=== PATIENT | female | born 2000 | race African-American/Black ===

== ENCOUNTER 2020-03-28 10:25 | Observation (INO) | payer MEDICARE, OTHER, SELFPAY ==
[~2020-03-28] VITALS: Ht 175.3 cm; Wt 72.7 kg
[2020-03-28] MEDS ORDERED: NS 1,000 ML IV ONE (11:00)
[2020-03-28] MEDS ORDERED: GI COCKTAIL 50ML BTL(HYOSCYAMINE/MAALOX/LIDOCAINE VISCOUS)(1:3:1) PO ONE (11:00)
[2020-03-28] MEDS ORDERED: PANTOPRAZOLE 40MG VIAL (C9113 PER 1) IV ONE (11:00)
[2020-03-28] MEDS ORDERED: ONDANSETRON 4MG/2ML VIAL IV ONE ×2 (11:00→12:30)
[2020-03-28 11:16] LABS: BASO # 0.1 10^3/uL (0.0-0.2); BASO % 0.3 % (0.0-1.0); EOS # 0.2 10^3/uL (0.0-0.5); EOS % 1.1 % (0.0-3.0); HEMATOCRIT 41.9 % (36.0-47.0); HEMOGLOBIN 13.6 g/dl (12.0-15.5); LYMPH # 2.8 10^3/uL (1.5-5.0); LYMPH % 18.7 % (24.0-44.0); MEAN CORPUSCULAR HEMOGLOBIN 29.9 pg (27.0-33.0); MEAN CORPUSCULAR HGB CONC 32.5 g/dl (32.0-36.5); MEAN CORPUSCULAR VOLUME 92.1 fl (80.0-96.0); MONO # 0.7 10^3/uL (0.0-0.8); MONO % 4.8 % (0.0-5.0); NEUTROPHILS # 11.1 10^3/uL (1.5-8.5); NEUTROPHILS % 74.7 % (36.0-66.0); PLATELET COUNT, AUTOMATED 266 10^3/uL (150-450); RED BLOOD COUNT 4.55 10^6/uL (4.00-5.40); WHITE BLOOD COUNT 14.9 10^3/uL (4.0-10.0)
[2020-03-28 11:46] LABS: ALBUMIN 4.1 GM/DL (3.2-5.2); ALT/SGPT 17 U/L (12-78); BILIRUBIN,DIRECT 0.2 MG/DL (0.0-0.2); BILIRUBIN,TOTAL 0.5 MG/DL (0.2-1.0); BLOOD UREA NITROGEN 11 MG/DL (7-18); CARBON DIOXIDE LEVEL 25 MEQ/L (21-32); CHLORIDE LEVEL 110 MEQ/L (98-107); CREATININE FOR GFR 0.76 MG/DL (0.55-1.30); GLUCOSE, FASTING 88 MG/DL (70-100); LIPASE 118 U/L (73-393); POTASSIUM SERUM 3.6 MEQ/L (3.5-5.1); SODIUM LEVEL 140 MEQ/L (136-145); TOTAL PROTEIN 7.5 GM/DL (6.4-8.2)
[2020-03-28 11:54] LABS: HCG, SERUM QUALITATIVE NEGATIVE (NEGATIVE)
[2020-03-28] MEDS: GASTROGRAFIN SOLUTION 30ML PO SCH ×2 (12:47→13:30)
[2020-03-28] MEDS ORDERED: PROMETHAZINE INJ 25 MG/ML VIAL (J2550) IV ONE (13:15)
[2020-03-28] MEDS ORDERED: NS 1,000 ML IV SCH (13:16)
[2020-03-28] MEDS ORDERED: ISOVUE-370 76% 100ML VIAL As Ordered ONE (13:56)
[2020-03-28] MEDS ORDERED: ACETAMINOPHEN TAB 650MG DOSE (2X325MG) PO PRN (17:30)
[2020-03-28] MEDS ORDERED: METOCLOPRAMIDE INJ 10MG/2ML VIAL (J2765 PER 1) IV PRN (17:45)
--- NOTE | 2020-03-28 17:46 | HPEPDOC ---
[facility] Medical History & Physical Date of Admission March 28, 2020 Date of Service: March 28, 2020 Attending Physician: CELSA MICHEL MD History and Physical CHIEF COMPLAINT: nausea/vomiting HISTORY OF PRESENT ILLNESS: Tej Linton is a 19 YO F with history of daily marijuana use who presents with intractable nausea and vomiting. She states that she woke up this morning and started vomiting immediately. She was not able to keep anything down and has vomited numerous times. Last night she ate buffalo chicken dip made by a friend and she reports no one else who ate this dip is currently sick. She also had 1 episode of diarrhea this morning. Otherwise she has no complaints. She states that this has happened to her once before that prompted ED visit in a different state and her workup was negative. The ED she was given 2 doses of IV Zofran, one dose of promethazine with no relief of her nausea. She was also given a GI cocktail and told to drink the oral contrast for CT, but refused as she stated it made her nauseous. PAST MEDICAL HISTORY: Marijuana use (daily) PAST SURGICAL HISTORY: Hernia repair Back surgery SOCIAL HISTORY: Smokes marijuana daily Reports moderate EtOH use. Drank yesterday evening Denies other drug use FAMILY HISTORY: noncontributory ALLERGIES: Please see below. REVIEW OF SYSTEMS: CONSTITUTIONAL: Denies weight loss, weight gain, fevers, chills, or night sweats EYES: Denies visual changes, double vision, blurry vision, floaters, or feeling like a curtain pulled down. ENT: Denies runny nose, epistaxis, sinus pain, tinnitus, sore throat, or odynophasia CARDIOVASCULAR: Denies chest pain, shortness of breath, paroxysmal nocturnal dyspnea, orthopnea, edema, or palpitations. RESPIRATORY: Denies cough, sputum production, wheezes, hemoptysis, or shortness of breath GASTROINTESTINAL: Reports diffuse abdominal pain, nausea GENITOURINARY: Denies hematuria, polyuria, dysuria, hesitancy, or dribbling MSK: Denies joint swelling, decreased range of motion, crepitus, or new arthritis INTEGUMENTARY: Denies pruritus, rashes, or lesions NEUROLOGY: Denies any changes to sight/smell/hearing/taste, seizures, faint, headaches, paresthesias, anesthesias PSYCHIATRIC: Denies depression, anxiety, paranoia, anhedonia, or episodes of candi ENDOCRINE: Denies diarrhea, increased appetite, tremor, palpitations, constipation, dry skin, polydipsia, polyuria, polyphagia HEMATOLOGIC: Denies any anemia, purpura, or petechiae LYMPHATIC: Denies any new lumps or bumps anywhere HOME MEDICATIONS: Please see below. PHYSICAL EXAMINATION: VITAL SIGNS: Please see below. GENERAL APPEARANCE: Laying in bed, actively wretching and throwing up clear sputum, appears stated age, no acute distress, calm, cooperative HEENT: EOMI, PERRLA, neck is supple with no thyromegaly or lymphadenopathy RESPIRATORY: Lungs are clear to auscultation bilaterally with no adventitious breath sounds appreciated CARDIOVASCULAR: no JVD, tachycardic, no murmurs/rubs/gallops, normal S1 and S2 ABDOMEN: +BS, soft, tender only to deep palpation in all 4 quadrants, no masses/organomegaly EXTREMITIES: no clubbing, cyanosis or edema noted NEUROLOGICAL: CN 2-12 intact, No obvious focal deficits PSYCHIATRIC: normal mood/affect Skin: No rashes or ulcers appreciated, warm and well-perfused LN: No significant cervical or inguinal lymphadenopathy LABORATORY DATA: See below. IMAGING: CT ABD/PEL: Read pending MICROBIOLOGY: Please see below. ASSESSMENT: This is a 19 YO F with history of heavy marijuana use who presents with nausea, vomiting and 1 episode of diarrhea concerning for cyclic vomiting syndrome. . PLAN: 1. Nausea, Vomiting, abdominal pain: Most likely 2/2 Cyclic vomiting syndrome. Less likely appenticitis or cholecystitis as pain is generalized and CT findings not concerning -Status post Zofran 2, Phenergan 1,+ GI cocktail from ED -Continue IV fluids for now -Zofran 4mg Q8H as needed. QTC is 418 -Topical Capsacin to stomach -2mg Haldol once ordered -NPO, can have clear liquids once tolerated DVT ppx: TEDS/SCDs DISPO: Discharge likely within 24h Vital Signs Vital Signs Date Time Temp Pulse Resp B/P (MAP) Pulse Ox O2 Delivery O2 Flow Rate FiO2 03/28/20 16:21 97.9 03/28/20 16:00 52 18 123/67 (85) 100 Room Air Laboratory Data Labs 24H Laboratory Tests 2 03/28/20 11:05: Immature Granulocyte % (Auto) 0.4, Neutrophils (%) (Auto) 74.7H, Lymphocytes (%) (Auto) 18.7L, Monocytes (%) (Auto) 4.8, Eosinophils (%) (Auto) 1.1, Basophils (%) (Auto) 0.3, Neutrophils # (Auto) 11.1H, Lymphocytes # (Auto) 2.8, Monocytes # (Auto) 0.7, Eosinophils # (Auto) 0.2, Basophils # (Auto) 0.1, Nucleated Red Blood Cells % (auto) 0.0, Anion Gap 5L, Calcium Level 9.0, Total Bilirubin 0.5, Direct Bilirubin 0.2, Aspartate Amino Transf (AST/SGOT) 15, Alanine Aminotransferase (ALT/SGPT) 17, Alkaline Phosphatase 77, Total Protein 7.5, Albumin 4.1, Albumin/Globulin Ratio 1.2, Lipase 118, Human Chorionic Gonadotropin, Qual NEGATIVE CBC/BMP Laboratory Tests 03/28/20 11:05 Home Medications No Active Prescriptions or Reported Meds Allergies Coded Allergies: Peanut (Verified Allergy, Unknown, throat itchy, 03/28/20) A-FIB/CHADSVASC A-FIB History Current/History of A-Fib/PAF?: No Current PO Anticoag Therapy: No GME ATTESTATION GME ATTESTATION My faculty preceptor for this patient encounter was physically present during the encounter and was fully available. All aspects of the patient interview, examination, medical decision making process, and medical care plan development were reviewed and approved by the faculty preceptor. The faculty preceptor is aware and concurs with the plan as stated in the body of this note and will attest to such by his/her cosignature. JOSE NIEVES MD March 28, 2020 17:46
[2020-03-28] MEDS ORDERED: HALOPERIDOL 5MG/ML VIAL (J1630 PER 1) IV ONE (18:00)
[2020-03-28] MEDS ORDERED: CAPSAICIN 0.025% CR 60 GM TOP ONE (18:00)
[2020-03-28] MEDS: POTASSIUM CHLORIDE 10 MEQ SR TABLET PO ONE ×2 (19:00→20:10)
[2020-03-28] MEDS: NS 1,000 ML IV SCH (19:00)
[2020-03-28 19:28] VITALS: BP 140/75
[2020-03-29] MEDS: POTASSIUM CHLORIDE 10 MEQ SR TABLET PO ONE (00:52)
[2020-03-29] MEDS: NS 1,000 ML IV SCH ×2 (05:34→13:30)
[2020-03-29 06:50] VITALS: BP 111/71
[2020-03-29 06:56] LABS: AMPHETAMINES LEVEL URINE NEGATIVE (NEGATIVE); BARBITURATES URINE NEGATIVE (NEGATIVE); BENZODIAZEPINES URINE NEGATIVE (NEGATIVE); CANNABINOIDS URINE POSITIVE (NEGATIVE); COCAINE METABOLITE URINE NEGATIVE (NEGATIVE); METHADONE URINE NEGATIVE (NEGATIVE); OPIATES URINE NEGATIVE (NEGATIVE); PHENCYCLIDINE URINE NEGATIVE (NEGATIVE)
[2020-03-29 06:59] LABS: HEMATOCRIT 35.5 % (36.0-47.0); HEMOGLOBIN 11.7 g/dl (12.0-15.5); MEAN CORPUSCULAR HEMOGLOBIN 30.4 pg (27.0-33.0); MEAN CORPUSCULAR VOLUME 92.2 fl (80.0-96.0); PLATELET COUNT, AUTOMATED 214 10^3/uL (150-450); RED BLOOD COUNT 3.85 10^6/uL (4.00-5.40); WHITE BLOOD COUNT 12.8 10^3/uL (4.0-10.0)
[2020-03-29 07:17] LABS: BLOOD UREA NITROGEN 9 MG/DL (7-18); CALCIUM LEVEL 8.3 MG/DL (8.5-10.1); CARBON DIOXIDE LEVEL 24 MEQ/L (21-32); CHLORIDE LEVEL 112 MEQ/L (98-107); CREATININE FOR GFR 0.64 MG/DL (0.55-1.30); GLUCOSE, FASTING 67 MG/DL (70-100); MAGNESIUM LEVEL 1.9 MG/DL (1.8-2.4); POTASSIUM SERUM 4.2 MEQ/L (3.5-5.1); SODIUM LEVEL 144 MEQ/L (136-145)
--- NOTE | 2020-03-29 07:55 | REP ---
CT ABDOMEN AND PELVIS WITH IV CONTRAST: TECHNIQUE: Axial contrast-enhanced images from the lung bases to the pubic symphysis using 100 mL Isovue-370 intravenous contrast material with multiplanar reformations. Visualized lung bases are clear. The liver, spleen, adrenals, pancreas, and kidneys are normal in appearance. There is no hydronephrosis. There is no abdominal aortic aneurysm. There is no adenopathy. There is no free air. There is no evidence of bowel obstruction. The appendix is normal. Urinary bladder appears unremarkable. No definite pelvic mass seen. There is mild free fluid in the pelvis. IMPRESSION: No acute appendicitis or other acute bowel abnormality. No free air or obstruction. Mild free fluid in the pelvis. Electronically Signed by Francisco Javier Santos MD 03/29/2020 09:59 A
--- NOTE | 2020-03-29 14:02 | DS.PDOC ---
Discharge Summary General Date of Admission March 28, 2020 at 18:00 Date of Discharge 03/29/20 Attending Physician: CELSA MICHEL MD Discharge Summary PROCEDURES PERFORMED DURING STAY: None. ADMITTING DIAGNOSES: 1. Intractable vomiting, possible gastroenteritis. DISCHARGE DIAGNOSES: 1. Intractable vomiting, possible gastroenteritis. COMPLICATIONS/CHIEF COMPLAINT: Intractable Vomiting. HISTORY OF PRESENT ILLNESS: 19-year-old female was admitted for intractable vomiting, possibly secondary to gastroenteritis, less likely cyclic vomiting syndrome secondary to marijuana use. Patient was observed overnight, now tolerating by mouth, and has not had any vomiting since admission. She is comfortable, back to her baseline, without any complaints in the morning. He is hemodynamically stable for discharge and outpatient follow-up. HOSPITAL COURSE: As above. DISCHARGE MEDICATIONS: Please see below. ALLERGIES: Please see below. PHYSICAL EXAMINATION: VITAL SIGNS: Please see below. GENERAL: No distress HEENT: Normocephalic, atraumatic, moist mucous membranes NECK: Supple CARDIOVASCULAR EXAMINATION: S1, S2, no murmurs RESPIRATORY EXAMINATION: Clear to auscultation, no wheezing ABDOMINAL EXAMINATION: Soft, nontender, nondistended, positive bowel sounds EXTREMITIES: Range of motion intact SKIN: No rash NEUROLOGICAL EXAMINATION: Alert and oriented 3, no focal deficits PSYCHIATRIC EXAMINATION: Calm and cooperative LABORATORY DATA: Please see below. IMAGING: CT was negative for acute pathology PROGNOSIS: Good ACTIVITY: As tolerated. DIET: Regular DISCHARGE PLAN: Follow with PCP in 1-2 weeks DISPOSITION: Home. DISCHARGE INSTRUCTIONS: 1. As above. DISCHARGE CONDITION: Stable. TIME SPENT ON DISCHARGE: Greater than 25 minutes. Vital Signs/I&Os Vital Signs Date Time Temp Pulse Resp B/P (MAP) Pulse Ox O2 Delivery O2 Flow Rate FiO2 03/29/20 06:50 98.2 62 20 111/71 (84) 97 Room Air I&O- Last 24 Hours up to 6 AM 03/29/20 05:59 Intake Total 1450 ml Output Total 450 ml Balance 1000 ml Laboratory Data Labs 24H Laboratory Tests 2 03/29/20 06:19: Urine Opiates Screen NEGATIVE, Urine Methadone Screen NEGATIVE, Urine Barbiturates Screen NEGATIVE, Urine Phencyclidine Screen NEGATIVE, Urine Amphetamines Screen NEGATIVE, Urine Benzodiazepines Screen NEGATIVE, Urine Cocaine Metabolite Screen NEGATIVE, Urine Cannabinoids Screen POSITIVEH 03/29/20 06:31: Nucleated Red Blood Cells % (auto) 0.0, Anion Gap 8, Calcium Level 8.3L, Magnesium Level 1.9 CBC/BMP Laboratory Tests 03/29/20 06:31 Discharge Medications No Active Prescriptions or Reported Meds Allergies Coded Allergies: Peanut (Verified Allergy, Unknown, throat itchy, 03/28/20) CELSA MICHEL MD March 29, 2020 14:02
--- NOTE | 2020-03-29 19:47 | ECGEPIP ---
[facility] - ED Test Date: 2020-03-28 Pat Name: NICK SNOW Department: Room: 01-02 Gender: Female International Tax Manager: rosas : 2000 Requested By: BRIT Rodriguez Order Number: [id number] Reading MD: Chantelle Perera Measurements Intervals [place] Rate: 63 P: 44 VA: 202 QRS: 70 QRSD: 91 T: 51 QT: 409 QTc: 422 Interpretive Statements SINUS RHYTHM NO PRIOR Electronically Signed on 03-29-2020 19:47:35 EDT by Chantelle Perera
== END 2020-03-29 14:48 | disposition home or self-care (01) ==
LOC: EDBD 10:25 → M ED 10:25 → M ED INP 18:00 → ENRESERV 18:19 → M MS5PR 19:05
PROVIDERS: ADMIT Internal Medicine; ATTEND Internal Medicine
DX: R11.2 Nausea with vomiting, unspecified (principal); K52.9 Noninfective gastroenteritis and colitis, unspecified; F12.10 Cannabis abuse, uncomplicated; Z91.010 Allergy to peanuts
CPT/HCPCS: 36415; 74177; 80048; 80076; 80307; 83690; 83735; 84703; 85025; 85027; 93005; 93041; 96361; 96374; 96375; 96376; 99285; C9113; J1630; J2405; J2765; Q9963; Q9967

== ENCOUNTER 2021-03-30 15:47 | Emergency (ER) | payer OTHER ==
[~2021-03-30] VITALS: Ht 175.3 cm; Wt 93.4 kg
[2021-03-30 16:00] VITALS: BP 130/70
== END 2021-03-30 19:00 | disposition left against medical advice (07) ==
LOC: M ED 15:47
DX: Z53.21 Procedure and treatment not carried out due to patient leaving prior to being seen by health care provider (principal)

== ENCOUNTER 2021-03-31 21:18 | Emergency (ER) | payer OTHER ==
[~2021-03-31] VITALS: Ht 175.3 cm; Wt 95.6 kg
[2021-03-31 21:19] VITALS: BP 122/67
[2021-03-31] MEDS ORDERED: KETOROLAC 30 MG/ML 1ML VIAL IV ONE (23:15)
[2021-03-31] MEDS ORDERED: NS 1,000 ML IV ONE (23:15)
[2021-03-31] MEDS ORDERED: ONDANSETRON 4MG/2ML VIAL IV ONE (23:15)
[2021-03-31 23:28] LABS: ALBUMIN 3.6 GM/DL (3.2-5.2); BILIRUBIN,DIRECT 0.1 MG/DL (0.0-0.2); BILIRUBIN,TOTAL 0.4 MG/DL (0.2-1.0); TOTAL PROTEIN 7.1 GM/DL (6.4-8.2)
[2021-03-31 23:39] LABS: BASO # 0.1 10^3/uL (0.0-0.2); BASO % 0.7 % (0.0-1.0); EOS # 0.2 10^3/uL (0.0-0.5); EOS % 2.2 % (0.0-3.0); HEMATOCRIT 39.1 % (36.0-47.0); HEMOGLOBIN 12.8 g/dl (12.0-15.5); LYMPH # 3.9 10^3/uL (1.5-5.0); LYMPH % 36.5 % (24.0-44.0); MEAN CORPUSCULAR HEMOGLOBIN 30.1 pg (27.0-33.0); MEAN CORPUSCULAR HGB CONC 32.7 g/dl (32.0-36.5); MONO # 0.7 10^3/uL (0.0-0.8); MONO % 6.5 % (2.0-8.0); NEUTROPHILS # 5.8 10^3/uL (1.5-8.5); NEUTROPHILS % 53.8 % (36.0-66.0); PLATELET COUNT, AUTOMATED 273 10^3/uL (150-450); RED BLOOD COUNT 4.25 10^6/uL (4.00-5.40); WHITE BLOOD COUNT 10.8 10^3/uL (4.0-10.0)
== END 2021-03-31 23:16 | disposition left against medical advice (07) ==
LOC: M ED 21:18
DX: R10.84 Generalized abdominal pain (principal); R11.0 Nausea; Z53.9 Procedure and treatment not carried out, unspecified reason; Z91.010 Allergy to peanuts

== ENCOUNTER 2021-06-19 14:20 | Emergency (ER) | payer OTHER ==
[~2021-06-19] VITALS: Ht 175.3 cm; Wt 102.1 kg
[2021-06-19 16:00] VITALS: BP 122/70
[2021-06-19] MEDS ORDERED: predniSONE 20 MG TAB PO ONE (16:05)
[2021-06-19] MEDS ORDERED: PRED10TA2 PO (16:07)
== END 2021-06-19 16:26 | disposition home or self-care (01) ==
LOC: M ED 14:20
DX: M54.12 Radiculopathy, cervical region (principal); F41.9 Anxiety disorder, unspecified; F32.9 Major depressive disorder, single episode, unspecified; Z91.010 Allergy to peanuts
CPT/HCPCS: 99283; J7512

== ENCOUNTER 2021-08-29 08:39 | Emergency (ER) | payer OTHER ==
[~2021-08-29] VITALS: Ht 175.3 cm; Wt 100.0 kg
[2021-08-29 08:39] VITALS: BP 122/59
[~2021-08-29 08:39] MED LIST: PRED10TA2 PO
--- OUTSIDE RECORDS SUMMARY | 2021-08-29 08:45 | CCD ---
Author Organization Unknown Address [address] [place] [address] Phone [phone] Care Team Providers Care Real Estate Professor Name Role Phone Hali Adams Unavailable Unavailable Allergies Code Code System Name Reaction Severity Status Onset NKDA Medications Name Status Start Date Stop Date meloxicam 15 mg tablet Take 1 tablet every day by oral route. Active Not available Problems None recorded. Procedures None recorded. Results Lab Results None recorded. Past Encounters 06/29/2021 Patient New to Provider; Paresthesia of Hand Hali Adams MD: [address] [place] [phone], Ph. Social History Tobacco Smoking Status Never Smoker Vaccine List None recorded. Plan of Care Reminders Provider Appointments None recorded. Lab None recorded. Referral None recorded. Procedures None recorded. Surgeries None recorded. Imaging None recorded. Vitals Weight Blood Pressure 223 lbs 123/76 mm[Hg]
--- OUTSIDE RECORDS SUMMARY | 2021-08-29 08:45 | CCD ---
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 gh: [address] [facility] Blood venous Normal Red Blood Cell Count 4.5 7 million/uL 3.80-5.10 million/uL Final [facility] gh: [address] [facility] Blood venous Normal Hemoglobin 13.8 g/dL 11.7-15. 5 g/dL Final [facility]: [address] [facility] Blood venous Normal Hematocrit 40.8 % 35.0-45.0 % Final [facility]: [address] [facility] Blood venous Normal Mcv 89.3 fL 80.0-100.0 fL Fi nal [facility]: [address] [facility] Blood venous Normal Mch 30.2 pg 27.0-33.0 pg Fin al [facility]: [address] [facility] Blood venous Normal Mchc 33.8 g/dL 32.0-36.0 g/dL [facility]: [address] [facility] Blood venous Normal Rdw 12.7 % 11.0-15.0 % Final [facility]: [address] Blood venous Normal Platelet Count 286 thous and/uL 140-400 thousand/uL Final [facility]: [address] [facility] Blood venous High Mpv 12.7 fL 7.5-12.5 fL Elvira l [facility]: [address] [facility] Lyme Disease Igg+igm, Serum, Reflex Western Blot Blood ve nous Normal Lyme Ab Screen <0.90 index Final [facility]: [address] [facility] CHUCKY (Antinuclear Antibodies) Screen, Serum Blood venous Normal anachoice(R) Screen negative negative Final [facility] [place]: [address] Past Encounters 07/21/2021 Adult Health Examination; Patient New to Provider; Immunization Advised; Body Mass Index 30+ - Obesity; Hyperlipidemia Screening; Venereal Disease Screening; Endocrine/metabolic Screening Elgin Allen MD: [address] [place] [phone], Ph. 07/01/2021 Reynold Esparza MD: [address] [place] [phone], Ph. 06/29/2021 Patient New to Provider; Paresthesia of Hand Elgin Allen MD: [address] [place] [phone], Ph. Social History Tobacco Smoking Status Never Smoker Vaccine List None recorded. Plan of Care Reminders Provider Appointments None recorded. Lab None recorded. Referral None recorded. Procedures None recorded. Surgeries None recorded. Imaging None recorded. Vitals 07/21/2021 11:20AM NEW PATIENT (11yrs - OLDER) Height Weight BMI Blood Pressure 69 in 230 lbs 34 kg/m2 112/75 mm[Hg] 06/29/2021 04:40PM ED FOLLOW-UP Weight Blood Pressure 223 lbs 123/76 mm[Hg]
--- OUTSIDE RECORDS SUMMARY | 2021-08-29 08:45 | CCD ---
Author Organization Unknown Address [address] [place] [address] Phone [phone] Care Team Providers Care Fluid Designer Name Role Phone ELGIN ALLEN MD 3 [phone] [facility] 129 [phone] Allergies Code Code System Name Reaction Severity Status Onset NKDA Medications Name Status Start Date Stop Date cholecalciferol (vitamin D3) 50 mcg (2,0 00 unit) tablet Take 1 tablet every day by oral route. 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 Vitamin D Deficiency Active 07/27/2021 Procedures Date Name Performed by Primary Lumbar Discectomy Information no t available Repair of Umbilical Hernia Information n ot available Results Lab Results Date Name Specimen Result Interpretation Description Value Range Status Address 08/23/2021 SARS CoV 2 RdRp Gene, QL Probe, Respiratory Spec imen Nasopharyngeal Sars-cov-2 PCR negative Main [facility] Medical: [address] [facility] Nasopharyngeal Normal Sars-cov-2 negative negative Final [facility] Medical: [address] [facility] Cbc Blood venous Normal White Blood Cell Count 1 0.8 thousand/uL 3.8-10.8 thousand/uL Final [facility] gh: [address] [facility] Blood venous Normal Red Blood Cell Count 4.5 7 million/uL 3.80-5.10 million/uL Final [facility] gh: [address] [facility] Blood venous Normal Hemoglobin 13.8 g/dL 11.7-15. 5 g/dL Final [facility]: [address] [facility] Blood venous Normal Hematocrit 40.8 % 35.0-45.0 % Final [facility]: [address] [facility] Blood venous Normal Mcv 89.3 fL 80.0-100.0 fL Fi nal [facility]: [address] [facility] Blood venous Normal Mch 30.2 pg 27.0-33.0 pg Fin al [facility]: [address] [facility] Blood venous Normal Mchc 33.8 g/dL 32.0-36.0 g/dL Final [facility]: [address] [facility] Blood venous Normal Rdw 12.7 % 11.0-15.0 % [facility]: [address] [facility] Blood venous Normal Platelet Count 286 thous and/uL 140-400 thousand/uL Final [facility]: [address] [facility] Blood venous High Mpv 12.7 fL 7.5-12.5 fL Elvira l [facility]: [address] [facility] Lyme Disease Igg+igm, Serum, Reflex Western Blot Blood ve nous Normal Lyme Ab Screen <0.90 index Final [facility]: [address] [facility] CHUCKY (Antinuclear Antibodies) Screen, Serum Blood venous Normal anachoice(R) Screen negative negative Final [facility] Diagn [facility]: [address] [facility] Lipid Panel, Serum Normal Cholesterol, Total 152 m g/dL <200 mg/dL Final [facility]: [address] [facility] Normal HDL Cholesterol 72 mg/dL > or = 50 m g/dL [facility]: [address] [facility] High Triglycerides 214 mg/dL <150 mg/dL F inal [facility]: [address] [facility] Normal LDL-cholesterol 52 mg/dL (calc) Final [facility]: [address] [facility] Normal Chol/hdlc Ratio 2.1 (calc) <5.0 (elvis c) [facility]: [address] [facility] Normal Non HDL Cholesterol 80 mg/dL (calc) <130 mg/dL (calc) Final [facility]: [address] [facility] Hepatitis C Antibody and HIV 1/2, Screen and Diagnosti c Panel W/reflexes Hepatitis C Antibody nonreactive nonreactive Final [facility]: [address] [facility] Index 0.01 ratio <1.00 ratio Final [facility]: [address] [facility] HIV Ag/Ab, 4TH Gen non-reactive non- reactive Final [facility]: [address] [facility] Sti Increased Risk Panel Chla mydia Trachomatis RNA, Tma, Urogenital not detected not detected Final [facility]: [address] [facility] Neisseria Gonorrhoeae RNA, Tma, Urogenital not detected not detected Final [facility]: [address] [facility] sureab(R) Trichomonas Vaginal is RNA, Ql, Tma not detected not detected Final [facility]: [address] [facility] sureab(R), Mycoplasma Genital ium,realtime PCR not detected not detected Final [facility]: [address] [facility] Assay Details see note [facility]: [address] [facility] CMP, Serum or Plasma Normal Glucose 65 mg/dL 65-99 mg/dL [facility]: [address] [facility] Normal Urea Nitrogen (BUN) 9 mg/dL 7-25 mg/ dL [facility]: [address] [facility] Normal Creatinine 0.76 mg/dL 0.50-1.10 mg/d L [facility]: [address] [facility] Normal eGFR Non-afr. Irish 112 mL/ min/1.73m2 > or = 60 mL/min/1.73m2 [facility]: [address] [facility] Normal eGFR 130 mL/m in/1.73m2 > or = 60 mL/min/1.73m2 [facility]: [address] [facility] BUN/creatinine Ratio not applicable (calc) 6-22 (calc) [facility]: [address] [facility] Normal Sodium 141 mmol/L 135-146 mmol/L Fin al [facility]: [address] [facility] Normal Potassium 4.4 mmol/L 3.5-5.3 mmol/L [facility]: [address] [facility] Normal Chloride 107 mmol/L 98-110 mmol/L Fi nal [facility]: [address] [facility] Normal Carbon Dioxide 26 mmol/L 20-32 mmol/ L [facility]: [address] [facility] Normal Calcium 9.9 mg/dL 8.6-10.2 mg/dL Fin al [facility]: [address] [facility] Normal Protein, Total 7.2 g/dL 6.1-8.1 g/dL [facility]: [address] [facility] Normal Albumin 4.5 g/dL 3.6-5.1 g/dL Final [facility]: [address] [facility] Normal Globulin 2.7 g/dL (calc) 1.9-3.7 g/d L (calc) Final [facility]: [address] [facility] Normal Albumin/globulin Ratio 1.7 (calc) 1. 0-2.5 (calc) [facility]: [address] [facility] Normal Bilirubin, Total 0.4 mg/dL 0.2-1.2 m g/dL Final [facility]: [address] [facility] Normal Alkaline Phosphatase 87 U/L 31-125 U /L Final [facility]: [address] [facility] Normal Ast 20 U/L 10-30 U/L Final [facility] [address] [facility] Normal Alt 13 U/L 6-29 U/L Final [facility] [address] [facility] Tsh Normal Tsh 1.10 mIU/L [facility]: [address] [facility] Vitamin D, 25-Hydroxy, Total, Serum Low Vitamin D,25-Oh,total,ia 12 NG/mL 30-100 NG/mL Final [facility]: [address] [facility] HbA1C (Hemoglobin a1C), Blood Normal Hemoglobi n a1C 5.0 % of total HGB <5.7 % of total HGB [facility] [address] [facility] RPR (Rapid Plasma Reagin), Serum Normal RPR (DX) W/refl Titer and Confirmatory Testing non-reactive non-reactive Final [facility] Diag nostics [facility]: [address] [facility] Past Encounters 08/23/2021 Exposure to SARS-CoV-2 Reynold Esparza MD: [address] [place] [phone], Ph. 07/21/2021 Adult Health Examination; Patient New to Provider; Immunization Advised; Body Mass Index 30+ - Obesity; Hyperlipidemia Screening; Venereal Disease Screening; Endocrine/metabolic Screening Elgin Allen MD: [address] [place] [phone], Ph. 07/01/2021 Reynold Esparza MD: [address] [place] [phone], Ph. 06/29/2021 Patient New to Provider; Paresthesia of Hand Elgin Allen MD: [address] [place] [phone], Ph. Social History Tobacco Smoking Status Never [...]
--- OUTSIDE RECORDS SUMMARY | 2021-08-29 08:45 | CCD ---
Author Organization Unknown Address [address] [place] [address] Phone [phone] Care Team Providers Care Tenoner Operator Name Role Phone Hali Adams Unavailable Unavailable Allergies Code Code System Name Reaction Severity Status Onset NKDA Medications Name Status Start Date Stop Date meloxicam 15 mg tablet Take 1 tablet every day by oral route. Active Not available Problems None recorded. Procedures None recorded. Results Lab Results None recorded. Past Encounters 07/01/2021 Reynold Esparza MD: [address] [place] [phone], Ph. 06/29/2021 Patient New to Provider; Paresthesia of Hand Hali Adams MD: [address] [place] [phone], Ph. Social History Tobacco Smoking Status Never Smoker Vaccine List None recorded. Plan of Care Reminders Provider Appointments None recorded. Lab None recorded. Referral None recorded. Procedures None recorded. Surgeries None recorded. Imaging None recorded. Vitals Weight Blood Pressure 223 lbs 123/76 mm[Hg]
--- OUTSIDE RECORDS SUMMARY | 2021-08-29 08:45 | CCD ---
Author Author [facility] Organization [facility] Address Unknown Phone Unavailable Care Team Providers Care Poly Operator Name Role Phone Estefany Esparza MD Unavailable Unavailable Estefany Esparza MD Unavailable Unavailable Estefany Esparza MD Unavailable Unavailable Estefany Esparza MD Unavailable Unavailable Estefany Esparza MD Unavailable Unavailable Estefany Esparza MD Unavailable Unavailable Estefany Esparza MD Unavailable Unavailable Estefany Esparza MD Unavailable Unavailable Estefany Esparza MD Unavailable Unavailable Estefany Esparza MD Unavailable Unavailable Estefany Esparza MD Unavailable Unavailable Estefany Esparza MD Unavailable Unavailable Estefany Esparza MD Unavailable Unavailable Estefany Esparza MD Unavailable Unavailable Estefany Esparza MD Unavailable Unavailable Estefany Esparza MD Unavailable Unavailable Estefany Esparza MD Unavailable Unavailable Estefany Esparza MD Unavailable Unavailable Estefany Esparza MD Unavailable Unavailable Estefany Esparza MD Unavailable Unavailable Estefany Esparza MD Unavailable Unavailable Estefany Esparza MD Unavailable Unavailable Estefany Esparza MD Unavailable Unavailable Estefany Esparza MD Unavailable Unavailable Estefany Esparza MD Unavailable Unavailable Estefany Esparza MD Unavailable Unavailable Estefany Epsarza MD Unavailable Unavailable Estefany Esparza MD Unavailable Unavailable Estefany Esparza MD Unavailable Unavailable Estefany Esparza MD Unavailable Unavailable Estefany Esparza MD Unavailable Unavailable Estefany Espazra MD Unavailable Unavailable Estefany Esparza MD Unavailable Unavailable Estefany Esparza MD Unavailable Unavailable Estefany Esparza MD Unavailable Unavailable Estefany Esparza MD Unavailable Unavailable Estefany Esparza MD Unavailable Unavailable Estefany Esparza MD Unavailable Unavailable Estefany Esparza MD Unavailable Unavailable Estefany Esparza MD Unavailable Unavailable EsparzaEstefany MD Unavailable Unavailable EsparzaEstefany MD Unavailable Unavailable EsparzaEstefany MD Unavailable Unavailable EsparzaEstefany MD Unavailable Unavailable EsparzaEstefany MD Unavailable Unavailable Estefany Esparza MD Unavailable Unavailable Estefany Esparza MD Unavailable Unavailable Estefany Esparza MD Unavailable Unavailable Estefany Esparza MD Unavailable Unavailable Estefany Esparza MD Unavailable Unavailable Estefany Esparza MD Unavailable Unavailable EsparzaEstefany MD Unavailable Unavailable Esparza, Estefany Flaherty MD Unavailable Unavailable EsparzaEstefany MD Unavailable Unavailable EsparzaEstefany MD Unavailable Unavailable EsparzaEstefany MD Unavailable Unavailable Estefany Esparza MD Unavailable Unavailable Estefany Esparza MD Unavailable Unavailable EsparzaEstefany MD Unavailable Unavailable EsparzaEstefany MD Unavailable Unavailable EsparzaEstefany MD Unavailable Unavailable EsparzaEstefany MD Unavailable Unavailable Estefany Epsarza MD Unavailable Unavailable Estefany Esparza MD Unavailable Unavailable Estefany Esparza MD Unavailable Unavailable Estefany Esparza MD Unavailable Unavailable Estefany Esparza MD Unavailable Unavailable Estefany Esparza MD Unavailable Unavailable Estefany Esparza MD Unavailable Unavailable Estefany Esparza MD Unavailable Unavailable Estefany Esparza MD Unavailable Unavailable Estefany Esparza MD Unavailable Unavailable Estefany Esparza MD Unavailable Unavailable Estefany Esparza MD Unavailable Unavailable Estefany Esparza MD Unavailable Unavailable Estefany Esparza MD Unavailable Unavailable Estefany Esparza MD Unavailable Unavailable Estefany Esparza MD Unavailable Unavailable Estefany Esparza MD Unavailable Unavailable Estefany Esparza MD Unavailable Unavailable Estefany Esparza MD Unavailable Unavailable Estefany Esparza MD Unavailable Unavailable Estefany Esparza MD Unavailable Unavailable Estefany Esparza MD Unavailable Unavailable Estefany Esparza MD Unavailable Unavailable Estefany Esparza MD Unavailable Unavailable Estefany Esparza MD Unavailable Unavailable Estefany Esparza MD Unavailable Unavailable Estefayn Esparza MD Unavailable Unavailable Estefany Esparza MD Unavailable Unavailable Estefany Esparza MD Unavailable Unavailable Estefany Esparza MD Unavailable Unavailable Estefany Esparza MD Unavailable Unavailable Angie, Velia Unavailable Unavailable Angie, Velia Unavailable Unavailable Angie, Velia Unavailable Unavailable Angie, Velia Unavailable Unavailable Angie, Velia Unavailable Unavailable Angie, Velia Unavailable Unavailable Angie, Velia Unavailable Unavailable Angie, Velia Unavailable Unavailable Angie, Velia Unavailable Unavailable Angie, Velia Unavailable Unavailable Angie, Velia Unavailable Unavailable Angie, Velia Unavailable Unavailable Angie, Velia Unavailable Unavailable Angie, Velia Unavailable Unavailable Angie, Velia Unavailable Unavailable Angie, Velia Unavailable Unavailable Angie, Velia Unavailable Unavailable Angie, Velia Unavailable Unavailable Angie, Velia Unavailable Unavailable Angie, Velia Unavailable Unavailable Angie, Velia Unavailable Unavailable Angie, Velia Unavailable Unavailable Angie, Velia Unavailable Unavailable Angie, Velia Unavailable Unavailable Angie, Velia Unavailable Unavailable Angie, Velia Unavailable Unavailable Re-disclosure Warning The records that you are about to access may contain information from federally-assisted alcohol or drug abuse programs. If such information is present, then the following federally mandated warning applies: This information has been disclosed to you from records protected by federal confidentiality rules (42 CFR part 2). The federal rules prohibit you from making any further disclosure of this information unless further disclosure is expressly permitted by the written consent of the person to whom it pertains or as otherwise permitted by 42 CFR part 2. A general authorization for the release of medical or other information is NOT sufficient for this purpose. The Federal rules restrict any use of the information to criminally investigate or prosecute any alcohol or drug abuse patient.The records that you are about to access may contain highly sensitive health information, the redisclosure of which is protected by Article 27-F of the [facility] Public Health law. If you continue you may have access to information: Regarding HIV / AIDS; Provided by facilities licensed or operated by the [facility] Office of Mental Health; or Provided by the [facility] Office for People With Developmental Disabilities. If such information is present, then the following [facility] mandated warning applies: This information has been disclosed to you from confidential records which are protected by state law. State law prohibits you from making any further disclosure of this information without the specific written consent of the person to whom it pertains, or as otherwise permitted by law. Any unauthorized further disclosure in violation of state law may result in a fine or half-way sentence or both. A general authorization for the release of medical or other information is NOT sufficient authorization for further disc losure. Encounters Encounter Providers Location Date Indications Data Source(s ) Reynold Esparza MD: [address] [place] [phone], Ph. Attender: Reynold Esparza MD [facility] Medical 08/23/2021 12:00:00 AM EDT JAYASHREE ([facility]) Hali Adams MD: [address], [place] [facility] [place] [address], Ph. Attender: Hali Adams [facility] Medical 07/21/2021 12:00:00 AM EDT JAYASHREE ([facility]) Hali Adams MD: [address], [place] [facility] [place] [address], Ph. Attender: Hali Adams [facility] Medical 07/21/2021 12:00:00 AM EDT JAYASHREE ([facility]) Reynold Esparza MD: [address] [place] [address], Ph. Attender: Reynold Esparza MD [facility] Medical 07/01/2021 12:00:00 AM EDT JAYASHREE ([facility]) Reynold Esparza MD: [address] [place] [address], Ph. Attender: Reynold Esparza MD [facility] Medical 07/01/2021 12:00:00 AM EDT JAYASHREE ([facility]) Reynold Esparza MD: [address] [place] [address], Ph. Attender: Reynold Esparza MD [facility] Medical 07/01/2021 12:00:00 AM EDT JAYASHREE ([facility]) Hali Adams MD: [address], [place] [facility] [place] [address], Ph. Attender: Hali Adams [facility] Medical 06/29/2021 12:00:00 AM EDT JAYASHREE ([facility]) Hali Adams MD: [address], [place] [facility] [place] [address], Ph. Attender: Hali Adams [facility] Medical 06/29/2021 12:00:00 AM EDT MAN[facility] ([facility]) Hali Adams MD: [address] [facility] [place] [address], Ph. Attender: Hali Adams [facility] Medical 06/29/2021 12:00:00 AM EDT MANLI[facility] ([facility]) Hali Adams MD: [address] [place] [address], Ph. Attender: Hali Adams [place] 06/29/2021 12:00:00 AM EDT MANLIUS ([facility]) Medications Medication Brand Name Start Date Product Form Dose Route Admi nistrative Instructions Pharmacy Instructions Status Indications Reaction Description Data Source(s) meloxicam 15 MG Oral Tablet meloxicam 15 mg tablet meloxicam 15 mg ta blet completed meloxicam 15 MG Oral Tablet MANLIUS ([facility]) meloxicam 15 MG Oral Tablet meloxicam 15 mg tablet meloxicam 15 mg ta blet completed meloxicam 15 MG Oral Tablet [facility] ([facility]) Insurance Providers Payer name Policy type / Coverage type Policy ID Covered democrat ID Covered democrat's relationship to mcconnell Policy [place] Plan Information EDSON [id number] SP [id number] EDSON [id number] SP [id number] [employer] EP[employer] [id number] SP [id number] 1 O UNAVAILABLE UNAVAILA BLE [employer] EP[employer] O [id number] S [id number] MEDICARE COMPLETE [id number] SP [id number] SELF PAY ONLY [id number] SP [id number] Problems, Conditions, and Diagnoses Code Display Name Description Problem Type Effective Dates Data Source(s) 83173566 Vitamin D deficiency Vitamin D Deficiency Problem 07/27/2021 12:00:00 AM EDT MANLIUS ([facility]) [id number] 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 Problem 07/21/2021 12:00:00 AM EDT MANLIUS ([facility]) [id number] Intervertebral disc prolapse Intervertebral Disc Prola pse Problem 07/21/2021 12:00:00 AM EDT [facility] ([facility]) [id number] 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 Problem 07/21/2021 12:00:00 AM EDT MANLIUS ([facility]) [id number] Intervertebral disc prolapse Intervertebral Disc Prola pse Problem 07/21/2021 12:00:00 AM EDT MANLIUS ([facility]) [id number] Paresthesia of hand Paresthesia of Hand Problem 0 07/20/2021 12:00:00 AM EDT MANLIUS ([facility]) [id number] Paresthesia of hand Paresthesia of Hand Problem 0 07/20/2021 12:00:00 AM EDT MANLIUS ([facility]) Surgeries/Procedures No Information Results ID Date Data Source [id number] 08/23/2021 02:20:00 PM EDT MANLIUS ([facility]) Name Value Range Interpretation Code Description Data Jordana rce(s) Supporting Document(s) sars-cov-2 PCR negative Sars-cov-2 PCR MANLIUS ([facility]) sars-cov-2 negative negative Sars-cov-2 MANLIUS ([facility]) ID Date Data Source [id number] 08/23/2021 02:05:00 PM EDT [facility] Name Value Range Interpretation Code Description Data Jordana rce(s) Supporting Document(s) SARS coronavirus 2 RdRp gene [Presence] in Respiratory specimen by HERMELINDO with probe detection Not detected [facility] This lab was ordered by [facility] and reported by [facility]. ID Date Data Source [id number] 07/27/2021 12:00:00 AM EDT [facility] ([facility]) Name Value Range Interpretation Code Description Data Jordana rce(s) Supporting Document(s) Reagin Ab [Presence] in Serum by RPR non-reactive non-reactive RPR (DX) W/refl Titer and Confirmatory Testing MAN[facility]US ([facility]) ID Date Data Source [id number] 07/27/2021 12:00:00 AM EDT [facility]) Name Value Range Interpretation Code Description Data Jordana rce(s) Supporting Document(s) Hemoglobin A1c/Hemoglobin.total in Blood 5.0 %_of_total_HGB <5.7 Hemoglobin a1C [facility]) ID Date Data Source [id number] 07/27/2021 12:00:00 AM EDT [facility]) Name Value Range Interpretation Code Description Data Jordana rce(s) Supporting Document(s) Calcidiol [Mass/volume] in Serum or Plasma 12 NG/mL 30-100 Below low normal Vitamin D,25-Oh,total,ia [facility]) ID Date Data Source [id number] 07/27/2021 12:00:00 AM EDT [facility]) Name Value Range Interpretation Code Description Data Jordana rce(s) Supporting Document(s) Thyrotropin [Units/volume] in Serum or Plasma 1.10 mIU/L Tsh [facility]) ID Date Data Source [id number] 07/27/2021 12:00:00 AM EDT [facility]) Name Value Range Interpretation Code Description Data Jordana rce(s) Supporting Document(s) Glucose [Mass/volume] in Serum or Plasma 65 mg/dL 65-99 Glucose MANLIUS ([facility]) Urea nitrogen [Mass/volume] in Serum or Plasma 9 mg/dL 7-25 Urea Nitrogen (BUN) [facility] Glomerular filtration rate/1.73 sq M.pre dicted among non-blacks [Volume Rate/Area] in Serum, Plasma or Blood by Creatinine-based formula (CKD-EPI) 112 mL/min/1.73m2 > or = 60 eGFR Non-afr. Nepalese JAYASHREE ([facility]) Creatinine [Mass/volume] in Serum or Plasma 0.76 mg/dL 0.50-1.10 Creatinine JAYASHREE ([facility]) Glomerular filtration rate/1.73 sq M.pre dicted among blacks [Volume Rate/Area] in Serum, Plasma or Blood by Creatinine-based formula (CKD-EPI) 130 mL/min/1.73m2 > or = 60 eGFR JAYASHREE (No [facility]) Urea nitrogen/Creatinine [Mass Ratio] in Serum or Plasma not applic able 6-22 BUN/creatinine Ratio JAYASHREE ([facility]) Sodium [Moles/volume] in Serum or Plasma 141 mmol/L 135-146 Sodium JAYASHREE ([facility]) Potassium [Moles/volume] in Serum or Plasma 4.4 mmol/L 3.5-5.3 Potassium JAYASHREE ([facility]) Chloride [Moles/volume] in Serum or Plasma 107 mmol/L 98-110 Chloride JAYASHREE ([facility]) Calcium [Mass/volume] in Serum or Plasma 9.9 mg/dL 8.6-10.2 Calcium JAYASHREE ([facility]) Carbon dioxide, total [Moles/volume] in Serum or Plasma 26 mmol/L 20-32 Carbon Dioxide JAYASHREE ([facility]) Protein [Mass/volume] in Serum or Plasma 7.2 g/dL 6.1-8.1 Protein, Total JAYASHREE ([facility]) Albumin [Mass/volume] in Serum or Plasma 4.5 g/dL 3.6-5.1 Albumin JAYASHREE ([facility]) Globulin [Mass/volume] in Serum by calculation 2.7 g/dL_(calc) 1.9- 3.7 Globulin JAYASHREE ([facility]) Albumin/Globulin [Mass Ratio] in Serum or Plasma 1.7 (calc) 1.0-2 .5 Albumin/globulin Ratio JAYASHREE ([facility]) Alkaline phosphatase [Enzymatic activity/volume] in Serum or Plasma 87 U/L 31-125 Alkaline Phosphatase [facility]US ([facility]) Bilirubin.total [Mass/volume] in Serum or Plasma 0.4 mg/dL 0.2-1 .2 Bilirubin, Total JAYASHREE ([facility]) Aspartate aminotransferase [Enzymatic activity/volume] in Serum or Plasma 20 U/L 10-30 Ast MANLIUS ([facility]) Alanine aminotransferase [Enzymatic activity/volume] in Seru m or Plasma 13 U/L 6-29 Alt MANLIUS ([facility]) ID Date Data Source [id number] 07/27/2021 12:00:00 AM EDT [facility]) Name Value Range Interpretation Code Description Data Jordana rce(s) Supporting Document(s) Chlamydia trachomatis rRNA [Presence] in Unspecified specimen by Probe and target amplification method not detected not detected Chla mydia Trachomatis RNA, Tma, Urogenital MANLIUS ([facility]) Neisseria gonorrhoeae rRNA [Presence] in Unspecified specimen by Probe and target amplification method not detected not detected Neis seria Gonorrhoeae RNA, Tma, Urogenital MAN[facility]US ([facility]) Trichomonas vaginalis rRNA [Presence] in Unspecified specimen by Probe and target amplification method not detected not detected sure swab(R) Trichomonas Vaginalis RNA, Ql, Tma MAN[facility]US ([facility]) Mycoplasma genitalium DNA [Presence] in Unspecified specimen by Probe and target amplification method not detected not detected sureswab(R ), Mycoplasma Genitalium,realtime PCR [facility]US ([facility]) Service comment 05 see note Assay Details [facility] ([facility]) ID Date Data Source [id number] 07/27/2021 12:00:00 AM EDT [facility]) Name Value Range Interpretation Code Description Data Jordana rce(s) Supporting Document(s) Hepatitis C virus Ab [Presence] in Serum or Plasma by Immuno assay nonreactive nonreactive Hepatitis C Antibody [facility]US ([facility]) Hepatitis C virus Ab Signal/Cutoff in Serum or Plasma by Imm unoassay 0.01 ratio <1.00 Index JAYASHREE ([facility]) HIV 1+2 Ab+HIV1 p24 Ag [Presence] in Serum or Plasma b y Immunoassay non-reactive non-reactive HIV Ag/Ab, 4TH Gen [facility] ID Date Data Source [id number] 07/27/2021 12:00:00 AM EDT [facility] ([facility]) Name Value Range Interpretation Code Description Data Jordana rce(s) Supporting Document(s) Cholesterol in HDL [Mass/volume] in Serum or Plasma 72 mg/dL > or = 50 HDL Cholesterol JAYASHREE ([facility]) Cholesterol [Mass/volume] in Serum or Plasma 152 mg/dL <200 Cholesterol, Total JAYASHREE ([facility]) Cholesterol in LDL [Mass/volume] in Serum or Plasma by calculation 52 mg/dL_(calc) LDL-cholesterol JAYASHREE ([facility]) Triglyceride [Mass/volume] in Serum or Plasma 214 mg/dL <150 Above high normal Triglycerides JAYASHREE ([facility]) Cholesterol.total/Cholesterol in HDL [Mass Ratio] in Serum o r Plasma 2.1 (calc) <5.0 Chol/hdlc Ratio JAYASHREE ([facility]) Cholesterol non HDL [Mass/volume] in Serum or Plasma 80 mg/dL_(calc ) <130 Non HDL Cholesterol [facility]) ID Date Data Source [id number] 07/02/2021 12:00:00 AM EDT [facility]) Name Value Range Interpretation Code Description Data Jordana rce(s) Supporting Document(s) Nuclear Ab [Presence] in Serum negative negative anach oice(R) Screen [facility]) ID Date Data Source [id number] 07/02/2021 12:00:00 AM EDT [facility]) Name Value Range Interpretation Code Description Data Jordana rce(s) Supporting Document(s) Borrelia burgdorferi Ab [Units/volume] in Serum by Immunoassay <0.9 0 Lyme Ab Screen [facility] ID Date Data Source [id number] 07/02/2021 12:00:00 AM EDT [facility] ([facility]) Name Value Range Interpretation Code Description Data Jordana rce(s) Supporting Document(s) Erythrocytes [#/volume] in Blood by Automated count 4.57 million/uL 3.80-5.10 Red Blood Cell Count JAYASHREE ([facility]) Leukocytes [#/volume] in Blood by Automated count 10.8 thousand/uL 3.8-10.8 White Blood Cell Count JAY[facility]REE ([facility]) Erythrocyte mean corpuscular hemoglobin [Entitic mass] by Automated count 30.2 pg 27.0-33.0 Mch JAYASHREE ([facility]) Erythrocyte mean corpuscular volume [Entitic volume] by Auto mated count 89.3 fL 80.0-100.0 Mcv JAYASHREE ([facility]) Hemoglobin [Mass/volume] in Blood 13.8 g/dL 11.7-15.5 He moglobin JAYASHREE ([facility]) Hematocrit [Volume Fraction] of Blood by Automated count 40.8 % 35.0-45.0 Hematocrit JAYASHREE ([facility]) Erythrocyte distribution width [Ratio] by Automated count 12.7 % 11.0-15.0 Rdw JAYASHREE ([facility]) Platelets [#/volume] in Blood by Automated count 286 thousand/uL 14 0-400 Platelet Count JAYASHREE ([facility]) Erythrocyte mean corpuscular hemoglobin concentration [Mass/volume] by Automated count 33.8 g/dL 32.0-36.0 Mchc JAYASHREE ([facility]) Platelet mean volume [Entitic volume] in Blood by Subhash-Aditi 12. 7 fL 7.5-12.5 Above high normal Mpv MANLIUS ([facility]) ID Date Data Source [id number] 07/02/2021 12:00:00 AM EDT [facility] ([facility]) Name Value Range Interpretation Code Description Data Jordana rce(s) Supporting Document(s) Nuclear Ab [Presence] in Serum negative negative anach oice(R) Screen JAYASHREE ([facility]) ID Date Data Source [id number] 07/02/2021 12:00:00 AM EDT [facility] ([facility]) Name Value Range Interpretation Code Description Data Jordana rce(s) Supporting Document(s) Borrelia burgdorferi Ab [Units/volume] in Serum by Immunoassay <0.9 0 Lyme Ab Screen [facility] ([facility]) ID Date Data Source [id number] 07/02/2021 12:00:00 AM EDT [facility] ([facility]) Name Value Range Interpretation Code Description Data Jordana rce(s) Supporting Document(s) Leukocytes [#/volume] in Blood by Automated count 10.8 thousand/uL 3.8-10.8 White Blood Cell Count [facility]US ([facility]) Erythrocytes [#/volume] in Blood by Automated count 4.57 million/uL 3.80-5.10 Red Blood Cell Count JAYASHREE ([facility]) Hemoglobin [Mass/volume] in Blood 13.8 g/dL 11.7-15.5 He moglobin JAYASHREE ([facility]) Hematocrit [Volume Fraction] of Blood by Automated count 40.8 % 35.0-45.0 Hematocrit [facility]US ([facility]) Erythrocyte mean corpuscular volume [Entitic volume] by Auto mated count 89.3 fL 80.0-100.0 Mcv JAYASHREE ([facility]) Erythrocyte mean corpuscular hemoglobin [Entitic mass] by Automated count 30.2 pg 27.0-33.0 Mch JAYASHREE ([facility]) Erythrocyte mean corpuscular hemoglobin concentration [Mass/volume] by Automated count 33.8 g/dL 32.0-36.0 Mchc JAYASHREE ([facility]) Erythrocyte distribution width [Ratio] by Automated count 12.7 % 11.0-15.0 Rdw JAYASHREE ([facility]) Platelets [#/volume] in Blood by Automated count 286 thousand/uL 14 0-400 Platelet Count JAYASHREE ([facility]) Platelet mean volume [Entitic volume] in Blood by Pattie 12. 7 fL 7.5-12.5 Above high normal Mpv JAYASHREE ([facility]) Procedure Social History No Information Vital Signs ID Date Data Source [id number] Name Value Range Interpretation Code Description Data Source(s) Diastolic blood pressure 75 mm[Hg] 75 mm[Hg] JAYASHREE ([facility]) Body height 69 [in_i] 69 [in_i] JAYASHREE ([facility]) Body mass index (BMI) [Ratio] 34 kg/m2 34 kg/ m2 JAYASHREE ([facility]) Systolic blood pressure 112 mm[Hg] 112 mm[Hg] A [facility] ([facility]) Body weight 3680 [oz_av] 3680 [oz_av] JAYASHREE ([facility]) Diastolic blood pressure 75 mm[Hg] 75 mm[Hg] JAYASHREE ([facility]) Body height 69 [in_i] 69 [in_i] JAYASHREE ([facility]) Body mass index (BMI) [Ratio] 34 kg/m2 34 kg/ m2 JAYASHREE ([facility]) Systolic blood pressure 112 mm[Hg] 112 mm[Hg] A [facility] ([facility]) Body weight 3680 [oz_av] 3680 [oz_av] JAYASHREE ([facility]) Diastolic blood pressure 76 mm[Hg] 76 mm[Hg] JAYASHREE ([facility]) Systolic blood pressure 123 mm[Hg] 123 mm[Hg] A [facility] ([facility]) Body weight 3568 [oz_av] 3568 [oz_av] JAYASHREE ([facility]) Diastolic blood pressure 76 mm[Hg] 76 mm[Hg] JAYASHREE ([facility]) Systolic blood pressure 123 mm[Hg] 123 mm[Hg] A [facility] ([facility]) Body weight 3568 [oz_av] 3568 [oz_av] JAYASHREE ([facility]) Diastolic blood pressure 76 mm[Hg] 76 mm[Hg] JAYASHREE ([facility]) Systolic blood pressure 123 mm[Hg] 123 mm[Hg] [facility]) Body weight 3568 [oz_av] 3568 [oz_av] JAYASHREE ([facility]) Diastolic blood pressure 76 mm[Hg] 76 mm[Hg] JAYASHREE ([facility]) Systolic blood pressure 123 mm[Hg] 123 mm[Hg] Nisha MCGOWAN ([facility]) Body weight 3568 [oz_av] 3568 [oz_av] JAYASHREE ([facility]) Patient Treatment Plan of Care Planned Activity Planned Date Details Description Data Source (s) meloxicam 15 MG Oral Tablet JAYASHREE ([facility]) meloxicam 15 MG Oral Tablet JAYASHREE ([facility])
--- OUTSIDE RECORDS SUMMARY | 2021-08-29 09:07 | CCD ---
Author Author [facility] Organization [facility] Address Unknown Phone Unavailable Care Team Providers Care Deputy Sheriff Lieutenant Name Role Phone Estefany Esparza MD Unavailable Unavailable Estefany Esparza MD Unavailable Unavailable Estefany Esparza MD Unavailable Unavailable Estefnay Esparza MD Unavailable Unavailable Estefany Esparza MD [...] Unavailable Unavailable Estefany Esparza MD Unavailable Unavailable Etsefany Esparza MD Unavailable Unavailable Estefany Esparza MD [...] is protected by Article 27-F of the [facility] Public Health law. If you continue you may have access to information: Regarding HIV / AIDS; Provided by facilities licensed or operated by the [facility] Office of Mental Health; or Provided by the [facility] Office for People With Developmental Disabilities. If such information is present, then the following [facility] mandated warning applies: This information has [...] law may result in a fine or fci sentence or both. A general authorization for the release of medical or other information is NOT sufficient authorization for further disc losure. Encounters Encounter Providers Location Date Indications Data Source(s ) Reynold Esparza MD: [address] [place] [phone], Ph. Attender: Reynold Esparza MD [facility] Medical 08/23/2021 12:00:00 AM EDT JAYASHREE ([facility]) Hali Adams MD: [address], [place] [address], Ph. Attender: Hali Adams [facility] Medical 07/21/2021 12:00:00 AM EDT JAYASHREE ([facility]) Hali Adams MD: [address], [place] [address], Ph. Attender: Hali Adams [facility] Medical 07/21/2021 12:00:00 AM EDT JAYASHREE ([facility]) Reynold Esparza MD: [address] [place] [address], Ph. Attender: Reynold Esparza MD [facility] Medical 07/01/2021 12:00:00 AM EDT JAYASHREE ([facility]) Reynold Esparza MD: [address] [place] [address], Ph. Attender: Reynold Esparza MD [facility] Medical 07/01/2021 12:00:00 AM EDT JAYASHREE ([facility]) Reynold Esparza MD: [address] [place] [address], Ph. Attender: Reynold Esparza MD [facility] Medical 07/01/2021 12:00:00 AM EDT JAYASHREE ([facility]) Hali Adams MD: [address], [place] [address], Ph. Attender: Hali Adams [facility] Medical 06/29/2021 12:00:00 AM EDT JAYASHREE ([facility]) Hali Adams MD: [address], [place] [address], Ph. Attender: Hali Aadms [facility] Medical 06/29/2021 12:00:00 AM EDT ARVADA ([facility]) Hali Adams MD[facility] [address] [facility] [place] [address], Ph. Attender: Hali Adams [facility] Medical 06/29/2021 12:00:00 AM EDT ARVADA ([facility]) Hali Adams MD: [address] [place] [address], Ph. Attender: Hali Adams [facility] [place]/29/2021 12:00:00 AM EDT ARVADA ([facility]) Medications Medication Brand Name Start Date Product Form Dose Route Admi nistrative Instructions Pharmacy Instructions Status Indications Reaction Description Data Source(s) meloxicam 15 MG Oral Tablet meloxicam 15 mg tablet meloxicam 15 mg ta blet completed meloxicam 15 MG Oral Tablet ARVADA ([facility]) meloxicam 15 MG Oral Tablet meloxicam 15 mg tablet meloxicam 15 mg ta blet completed meloxicam 15 MG Oral Tablet ARVADA ([facility]) Insurance Providers Payer name Policy type / Coverage type Policy ID Covered republican ID Covered republican's relationship to mcconnell Policy [place]on[place] Plan Information EDSON [id number] SP [id number] EDSON [id number] SP [id number] NCO EPALS [id number] SP [id number] 1 O UNAVAILABLE UNAVAILA BLE NCO EPALS O [id number] S [id number] MEDICARE COMPLETE [id number] SP [id number] SELF PAY ONLY [id number] SP [id number] Problems, Conditions, and Diagnoses Code Display Name Description Problem Type Effective Dates Data Source(s) 31444797 Vitamin D deficiency Vitamin D Deficiency Problem 07/27/2021 12:00:00 AM EDT ARVADA ([facility] er) [id number] 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 Problem 07/21/2021 12:00:00 AM EDT ARVADA ([facility]) [id number] Intervertebral disc prolapse Intervertebral Disc Prola pse Problem 07/21/2021 12:00:00 AM EDT ARVADA ([facility] er) [id number] 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 Problem 07/21/2021 12:00:00 AM EDT ARVADA ([facility]) [id number] Intervertebral disc prolapse Intervertebral Disc Prola pse Problem 07/21/2021 12:00:00 AM EDT ARVADA ([facility]) [id number] Paresthesia of hand Paresthesia of Hand Problem 0 07/20/2021 12:00:00 AM EDT ARVADA ([facility] er) [id number] Paresthesia of hand Paresthesia of Hand Problem 0 07/20/2021 12:00:00 AM EDT ARVADA ([facility]) Surgeries/Procedures No Information Results ID Date Data Source [id number] 08/23/2021 02:20:00 PM EDT ARVADA ([facility]) Name Value Range Interpretation Code Description Data Jordana rce(s) Supporting Document(s) sars-cov-2 PCR negative Sars-cov-2 PCR ARVADA ([facility]) sars-cov-2 negative negative Sars-cov-2 ARVADA ([facility]) ID Date Data Source [id number] 08/23/2021 02:05:00 PM EDT [facility] Name Value Range Interpretation Code Description Data Jordana rce(s) Supporting Document(s) SARS coronavirus 2 RdRp gene [Presence] in Respiratory specimen by HERMELINDO with probe detection Not detected [facility] This lab was ordered by [facility] and reported by [facility]. ID Date Data Source [id number] 07/27/2021 12:00:00 AM EDT ARVADA ([facility]) Name Value Range Interpretation Code Description Data Jordana rce(s) Supporting Document(s) Reagin Ab [Presence] in Serum by RPR non-reactive non-reactive RPR (DX) W/refl Titer and Confirmatory Testing ARVADA ([facility]) ID Date Data Source [id number] 07/27/2021 12:00:00 AM EDT [facility]) Name Value Range Interpretation Code Description Data Jordana rce(s) Supporting Document(s) Hemoglobin A1c/Hemoglobin.total in Blood 5.0 %_of_total_HGB <5.7 Hemoglobin a1C [facility]) ID Date Data Source [id number] 07/27/2021 12:00:00 AM EDT [facility]) Name Value Range Interpretation Code Description Data Jordana rce(s) Supporting Document(s) Calcidiol [Mass/volume] in Serum or Plasma 12 NG/mL 30-100 Below low normal Vitamin D,25-Oh,total,ia [facility]) ID Date Data Source [id number] 07/27/2021 12:00:00 AM EDT [facility]) Name Value Range Interpretation Code Description Data Jordana rce(s) Supporting Document(s) Thyrotropin [Units/volume] in Serum or Plasma 1.10 mIU/L Tsh [facility]) ID Date Data Source [id number] 07/27/2021 12:00:00 AM EDT [facility]) Name Value Range Interpretation Code Description Data Jordana rce(s) Supporting Document(s) Glucose [Mass/volume] in Serum or Plasma 65 mg/dL 65-99 Glucose ARVADA ([facility]) Urea nitrogen [Mass/volume] in Serum or Plasma 9 mg/dL 7-25 Urea Nitrogen (BUN) [facility]) Glomerular filtration rate/1.73 sq M.pre dicted among non-blacks [Volume Rate/Area] in Serum, Plasma or Blood by Creatinine-based formula (CKD-EPI) 112 mL/min/1.73m2 > or = 60 eGFR Non-afr. [place] JAYASHREE ([facility]) Creatinine [Mass/volume] in Serum or Plasma 0.76 mg/dL 0.50-1.10 Creatinine JAYASHREE ([facility]) Glomerular filtration rate/1.73 sq M.pre dicted among blacks [Volume Rate/Area] in Serum, Plasma or Blood by Creatinine-based formula (CKD-EPI) 130 mL/min/1.73m2 > or = 60 eGFR JAYASHREE (No [facility]) Urea nitrogen/Creatinine [Mass Ratio] in Serum or Plasma not applic able 6-22 BUN/creatinine Ratio JAYASHREE ([facility]) Sodium [Moles/volume] in Serum or Plasma 141 mmol/L 135-146 Sodium JAYASHREE ([facility]) Potassium [Moles/volume] in Serum or Plasma 4.4 mmol/L 3.5-5.3 Potassium JAYASHREE ([facility]) Chloride [Moles/volume] in Serum or Plasma 107 mmol/L 98-110 Chloride JAYASHREE ([facility]) Calcium [Mass/volume] in Serum or Plasma 9.9 mg/dL 8.6-10.2 Calcium JAYASHREE ([facility]) Carbon dioxide, total [Moles/volume] in Serum or Plasma 26 mmol/L 20-32 Carbon Dioxide JAYASHREE ([facility]) Protein [Mass/volume] in Serum or Plasma 7.2 g/dL 6.1-8.1 Protein, Total JAYASHREE ([facility]) Albumin [Mass/volume] in Serum or Plasma 4.5 g/dL 3.6-5.1 Albumin JAYASHREE ([facility]) Globulin [Mass/volume] in Serum by calculation 2.7 g/dL_(calc) 1.9- 3.7 Globulin JAYASHREE ([facility]) Albumin/Globulin [Mass Ratio] in Serum or Plasma 1.7 (calc) 1.0-2 .5 Albumin/globulin Ratio JAYASHREE ([facility]) Alkaline phosphatase [Enzymatic activity/volume] in Serum or Plasma 87 U/L 31-125 Alkaline Phosphatase ARVADA ([facility]) Bilirubin.total [Mass/volume] in Serum or Plasma 0.4 mg/dL 0.2-1 .2 Bilirubin, Total JAYASHREE ([facility]) Aspartate aminotransferase [Enzymatic activity/volume] in Serum or Plasma 20 U/L 10-30 Ast ARVADA ([facility]) Alanine aminotransferase [Enzymatic activity/volume] in Seru m or Plasma 13 U/L 6-29 Alt ARVADA ([facility]) ID Date Data Source [id number] 07/27/2021 12:00:00 AM EDT [facility]) Name Value Range Interpretation Code Description Data Jordana rce(s) Supporting Document(s) Chlamydia trachomatis rRNA [Presence] in Unspecified specimen by Probe and target amplification method not detected not detected Chla mydia Trachomatis RNA, Tma, Urogenital ARVADA ([facility]) Neisseria gonorrhoeae rRNA [Presence] in Unspecified specimen by Probe and target amplification method not detected not detected Neis seria Gonorrhoeae RNA, Tma, Urogenital ARVADA ([facility]) Trichomonas vaginalis rRNA [Presence] in Unspecified specimen by Probe and target amplification method not detected not detected sure swab(R) Trichomonas Vaginalis RNA, Ql, Tma ARVADA ([facility]) Mycoplasma genitalium DNA [Presence] in Unspecified specimen by Probe and target amplification method not detected not detected sureswab(R ), Mycoplasma Genitalium,realtime PCR ARVADA ([facility]) Service comment 05 see note Assay Details [facility] ([facility]) ID Date Data Source [id number] 07/27/2021 12:00:00 AM EDT [facility]) Name Value Range Interpretation Code Description Data Jordana rce(s) Supporting Document(s) Hepatitis C virus Ab [Presence] in Serum or Plasma by Immuno assay nonreactive nonreactive Hepatitis C Antibody ARVADA ([facility]) Hepatitis C virus Ab Signal/Cutoff in Serum or Plasma by Imm unoassay 0.01 ratio <1.00 Index JAYASHREE ([facility]) HIV 1+2 Ab+HIV1 p24 Ag [Presence] in Serum or Plasma b y Immunoassay non-reactive non-reactive HIV Ag/Ab, 4TH Gen [facility]) ID Date Data Source [id number] 07/27/2021 12:00:00 AM EDT ARVADA ([facility]) Name Value Range Interpretation Code Description Data Jordana rce(s) Supporting Document(s) Cholesterol in HDL [Mass/volume] in Serum or Plasma 72 mg/dL > or = 50 HDL Cholesterol JAYASHREE ([facility]) Cholesterol [Mass/volume] in Serum or Plasma 152 mg/dL <200 Cholesterol, Total JAYASHREE ([facility]) Cholesterol in LDL [Mass/volume] in Serum or Plasma by calculation 52 mg/dL_(calc) LDL-cholesterol JAYASHREE ([facility]) Triglyceride [Mass/volume] in Serum or Plasma 214 mg/dL <150 Above high normal Triglycerides JAYASHREE ([facility]) Cholesterol.total/Cholesterol in HDL [Mass Ratio] in Serum o r Plasma 2.1 (calc) <5.0 Chol/hdlc Ratio JAYASHREE ([facility]) Cholesterol non HDL [Mass/volume] in Serum or Plasma 80 mg/dL_(calc ) <130 Non HDL Cholesterol [facility]) ID Date Data Source [id number] 07/02/2021 12:00:00 AM EDT [facility]) Name Value Range Interpretation Code Description Data Jordana rce(s) Supporting Document(s) Nuclear Ab [Presence] in Serum negative negative anach oice(R) Screen [facility]) ID Date Data Source [id number] 07/02/2021 12:00:00 AM EDT [facility]) Name Value Range Interpretation Code Description Data Jordana rce(s) Supporting Document(s) Borrelia burgdorferi Ab [Units/volume] in Serum by Immunoassay <0.9 0 Lyme Ab Screen [facility]) ID Date Data Source [id number] 07/02/2021 12:00:00 AM EDT ARVADA ([facility]) Name Value Range Interpretation Code Description Data Jordana rce(s) Supporting Document(s) Erythrocytes [#/volume] in Blood by Automated count 4.57 million/uL 3.80-5.10 Red Blood Cell Count JAYASHREE ([facility]) Leukocytes [#/volume] in Blood by Automated count 10.8 thousand/uL 3.8-10.8 White Blood Cell Count JAYASHREE ([facility]) Erythrocyte mean corpuscular hemoglobin [Entitic mass] by Automated count 30.2 pg 27.0-33.0 Mch JAYASHREE ([facility]) Erythrocyte mean corpuscular volume [Entitic volume] by Auto mated count 89.3 fL 80.0-100.0 Mcv JAYASHREE ([facility]) Hemoglobin [Mass/volume] in Blood 13.8 g/dL 11.7-15.5 He moglobin JAYASHREE ([facility]) Hematocrit [Volume Fraction] of Blood by Automated count 40.8 % 35.0-45.0 Hematocrit JAYASHREE ([facility]) Erythrocyte distribution width [Ratio] by Automated count 12.7 % 11.0-15.0 Rdw JAYASHREE ([facility]) Platelets [#/volume] in Blood by Automated count 286 thousand/uL 14 0-400 Platelet Count JAYASHREE ([facility]) Erythrocyte mean corpuscular hemoglobin concentration [Mass/volume] by Automated count 33.8 g/dL 32.0-36.0 Mchc JAYASHREE ([facility]) Platelet mean volume [Entitic volume] in Blood by Subhash-Aditi 12. 7 fL 7.5-12.5 Above high normal Mpv ARVADA ([facility]) ID Date Data Source [id number] 07/02/2021 12:00:00 AM EDT AR[place]ADA ([facility]) Name Value Range Interpretation Code Description Data Jordana rce(s) Supporting Document(s) Nuclear Ab [Presence] in Serum negative negative anach oice(R) Screen JAYASHREE ([facility]) ID Date Data Source [id number] 07/02/2021 12:00:00 AM EDT ARVADA ([facility]) Name Value Range Interpretation Code Description Data Jordana rce(s) Supporting Document(s) Borrelia burgdorferi Ab [Units/volume] in Serum by Immunoassay <0.9 0 Lyme Ab Screen ARVADA ([facility]) ID Date Data Source [id number] 07/02/2021 12:00:00 AM EDT ARVADA ([facility]) Name Value Range Interpretation Code Description Data Jordana rce(s) Supporting Document(s) Leukocytes [#/volume] in Blood by Automated count 10.8 thousand/uL 3.8-10.8 White Blood Cell Count ARVADA ([facility]) Erythrocytes [#/volume] in Blood by Automated count 4.57 million/uL 3.80-5.10 Red Blood Cell Count JAYASHREE ([facility]) Hemoglobin [Mass/volume] in Blood 13.8 g/dL 11.7-15.5 He moglobin JAYASHREE ([facility]) Hematocrit [Volume Fraction] of Blood by Automated count 40.8 % 35.0-45.0 Hematocrit AR[place]ADA ([facility]) Erythrocyte mean corpuscular volume [Entitic volume] by Auto mated count 89.3 fL 80.0-100.0 Mcv JAYASHREE ([facility]) Erythrocyte mean corpuscular hemoglobin [Entitic mass] by Automated count 30.2 pg 27.0-33.0 Mch JAYASHREE ([facility]) Erythrocyte mean corpuscular hemoglobin concentration [Mass/volume] by Automated count 33.8 g/dL 32.0-36.0 Mchc JAYASHREE ([facility]) Erythrocyte distribution width [Ratio] by Automated count 12.7 % 11.0-15.0 Rdw JAYASHREE ([facility]) Platelets [#/volume] in Blood by Automated count 286 thousand/uL 14 0-400 Platelet Count JAYASHREE ([facility]) Platelet mean volume [Entitic volume] in Blood by Pattie 12. 7 fL 7.5-12.5 Above high normal Mpv JAYASHREE ([facility]) Procedure Social History No Information Vital Signs ID Date Data Source [id number] Name Value Range Interpretation Code Description Data Source(s) Diastolic blood pressure 75 mm[Hg] 75 mm[Hg] JAYASHREE ([facility]) Body height 69 [in_i] 69 [in_i] JAYASHREE ([facility]) Body mass index (BMI) [Ratio] 34 kg/m2 34 kg/ m2 JAYASHREE ([facility]) Systolic blood pressure 112 mm[Hg] 112 mm[Hg] A [facility] ([facility]) Body weight 3680 [oz_av] 3680 [oz_av] JAYASHREE ([facility]) Diastolic blood pressure 75 mm[Hg] 75 mm[Hg] JAYASHREE ([facility]) Body height 69 [in_i] 69 [in_i] JAYASHREE ([facility]) Body mass index (BMI) [Ratio] 34 kg/m2 34 kg/ m2 JAYASHREE ([facility]) Systolic blood pressure 112 mm[Hg] 112 mm[Hg] A [facility] ([facility]) Body weight 3680 [oz_av] 3680 [oz_av] JAYASHREE ([facility]) Diastolic blood pressure 76 mm[Hg] 76 mm[Hg] JAYASHREE ([facility]) Systolic blood pressure 123 mm[Hg] 123 mm[Hg] A [facility] ([facility]) Body weight 3568 [oz_av] 3568 [oz_av] JAYASHREE ([facility]) Diastolic blood pressure 76 mm[Hg] 76 mm[Hg] JAYASHREE ([facility]) Systolic blood pressure 123 mm[Hg] 123 mm[Hg] A [facility] ([facility]) Body weight 3568 [oz_av] 3568 [oz_av] JAYASHREE ([facility]) Diastolic blood pressure 76 mm[Hg] 76 mm[Hg] JAYSAHREE ([facility]) Systolic blood pressure 123 mm[Hg] 123 mm[Hg] [facility]) Body weight 3568 [oz_av] 3568 [oz_av] JAYASHREE ([facility]) Diastolic blood pressure 76 mm[Hg] 76 mm[Hg] JAYASHREE ([facility]) Systolic blood pressure 123 mm[Hg] 123 mm[Hg] Nisha MCGOWAN ([facility]) Body weight 3568 [oz_av] 3568 [oz_av] JAYASHREE ([facility]) Patient Treatment Plan of Care Planned Activity Planned Date Details Description Data Source (s) meloxicam 15 MG Oral Tablet JAYASHREE ([facility]) meloxicam 15 MG Oral Tablet JAYASHREE ([facility])
== END 2021-08-29 09:23 | disposition left against medical advice (07) ==
LOC: M ED 08:39
DX: Z53.21 Procedure and treatment not carried out due to patient leaving prior to being seen by health care provider (principal)

== ENCOUNTER 2021-09-15 04:37 | Emergency (ER) | payer OTHER ==
[~2021-09-15] VITALS: Ht 177.8 cm; Wt 100.8 kg
--- OUTSIDE RECORDS SUMMARY | 2021-09-15 04:50 | CCD ---
Author Author [facility] Organization [facility] Address Unknown Phone Unavailable Care Team Providers Care Geological Engineer Name Role Phone Estefany Esparza MD Unavailable [...] Unavailable Estefany Esparza MD Unavailable Unavailable Estefany Espraza MD Unavailable Unavailable Estefany Esparza MD Unavailable [...] is protected by Article 27-F of the [facility] Public Health law. If you continue you may have access to information: Regarding HIV / AIDS; Provided by facilities licensed or operated by the [facility] Office of Mental Health; or Provided by the [facility] Office for People With Developmental Disabilities. If such information is present, then the following [facility] mandated warning applies: This information has [...] law may result in a fine or chcf sentence or both. A general authorization for the release of medical or other information is NOT sufficient authorization for further disc losure. Encounters Encounter Providers Location Date Indications Data Source(s ) Reynold Esparza MD: [address] [place] [phone], Ph. Attender: Reynold Esparza MD [facility] 08/23/2021 12:00:00 AM EDT JAYASHREE ([facility]) Hali Adams MD: [address], [place] [address], Ph. Attender: Hali Adams [facility] Medical 07/21/2021 12:00:00 AM EDT JAYASHREE ([facility]) Hali Adams MD: [address], [place] [address], Ph. Attender: Hali Adams [facility] Medical 07/21/2021 12:00:00 AM EDT JAYASHREE ([facility]) Reynold Esparza MD: [address] [place] [address], Ph. Attender: Reynold Esparza MD [facility] 07/01/2021 12:00:00 AM EDT JAYASHREE ([facility]) Reynold Esparza MD: [address] [place] [address], Ph. Attender: Reynold Esparza MD [facility] 07/01/2021 12:00:00 AM EDT JAYASHREE ([facility]) Reynold Esparza MD: [address] [place] [address], Ph. Attender: Reynold Esparza MD [facility] 07/01/2021 12:00:00 AM EDT JAYASHREE ([facility]) Hali Adams MD: [address], [place] [address], Ph. Attender: Hali Adams [facility] Medical 06/29/2021 12:00:00 AM EDT JAYASHREE ([facility]) Hali Adams MD: [address] [place] [address], Ph. Attender: Hali Adams [facility] 06/29/2021 12:00:00 AM EDT [place] ([facility]) Hali Adams MD: [address] [place] [address], Ph. Attender: Hali Adams [facility] 06/29/2021 12:00:00 AM EDT [place] ([facility]) Hali Adams MD: [address] [place] [address], Ph. Attender: Hali Adams [facility] 06/29/2021 12:00:00 AM EDT [place] ([facility]) Medications Medication Brand Name Start Date Product Form Dose Route Admi nistrative Instructions Pharmacy Instructions Status Indications Reaction Description Data Source(s) meloxicam 15 MG Oral Tablet meloxicam 15 mg tablet meloxicam 15 mg ta blet completed meloxicam 15 MG Oral Tablet JAYASHREE ([facility]) meloxicam 15 MG Oral Tablet meloxicam 15 mg tablet meloxicam 15 mg ta blet completed meloxicam 15 MG Oral Tablet [place] ([facility]) Insurance Providers Payer name Policy type / Coverage type Policy ID Covered constitution party ID Covered constitution party's relationship to mcconnell Policy [place] Plan Information [facility] emp [id number] Employee [id number] [facility] emp [id number] Employee [id number] [employer] [id number] SP [id number] 1 O UNAVAILABLE UNAVAILA BLE [employer] EP[employer] O [id number] S [id number] 1 MEDICARE COMPLETE [id number] SP [id number] EDSON [id number] SP [id number] SELF PAY ONLY [id number] SP [id number] EDSON [id number] SP [id number] Problems, Conditions, and Diagnoses Code Display Name Description Problem Type Effective Dates Data Source(s) 86166326 Vitamin D deficiency Vitamin D Deficiency Problem 07/27/2021 12:00:00 AM EDT JAYASHREE ([facility]) [id number] 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 Problem 07/21/2021 12:00:00 AM EDT JAYASHREE ([facility]) [id number] Intervertebral disc prolapse Intervertebral Disc Prola pse Problem 07/21/2021 12:00:00 AM EDT JAYASHREE ([facility]) [id number] 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 Problem 07/21/2021 12:00:00 AM EDT [place] ([facility]) [id number] Intervertebral disc prolapse Intervertebral Disc Prola pse Problem 07/21/2021 12:00:00 AM EDT JAYASHREE ([facility]) [id number] Paresthesia of hand Paresthesia of Hand Problem 0 07/20/2021 12:00:00 AM EDT JAYASHREE ([facility]) [id number] Paresthesia of hand Paresthesia of Hand Problem 0 07/20/2021 12:00:00 AM EDT [place] ([facility]) Surgeries/Procedures No Information Results ID Date Data Source [id number] 08/23/2021 02:20:00 PM EDT [place] ([facility]) Name Value Range Interpretation Code Description Data Jordana rce(s) Supporting Document(s) sars-cov-2 PCR negative Sars-cov-2 PCR [place] ([facility]) sars-cov-2 negative negative Sars-cov-2 [place] ([facility]) ID Date Data Source [id number] 08/23/2021 02:05:00 PM EDT [facility] Name Value Range Interpretation Code Description Data Jordana rce(s) Supporting Document(s) SARS coronavirus 2 RdRp gene [Presence] in Respiratory specimen by HERMELINDO with probe detection Not detected [facility] This lab was ordered by [facility] and reported by [facility]. ID Date Data Source [id number] 07/27/2021 12:00:00 AM EDT [facility]) Name Value Range Interpretation Code Description Data Jordana rce(s) Supporting Document(s) Reagin Ab [Presence] in Serum by RPR non-reactive non-reactive RPR (DX) W/refl Titer and Confirmatory Testing [facility]) ID Date Data Source [id number] 07/27/2021 12:00:00 AM EDT [facility]) Name Value Range Interpretation Code Description Data Jordana rce(s) Supporting Document(s) Hemoglobin A1c/Hemoglobin.total in Blood 5.0 %_of_total_HGB <5.7 Hemoglobin a1C [facility]) ID Date Data Source [id number] 07/27/2021 12:00:00 AM EDT [facility]) Name Value Range Interpretation Code Description Data Jordana rce(s) Supporting Document(s) Calcidiol [Mass/volume] in Serum or Plasma 12 NG/mL 30-100 Below low normal Vitamin D,25-Oh,total,ia [facility]) ID Date Data Source [id number] 07/27/2021 12:00:00 AM EDT [facility]) Name Value Range Interpretation Code Description Data Jordana rce(s) Supporting Document(s) Thyrotropin [Units/volume] in Serum or Plasma 1.10 mIU/L Tsh [facility]) ID Date Data Source [id number] 07/27/2021 12:00:00 AM EDT [facility]) Name Value Range Interpretation Code Description Data Jordana rce(s) Supporting Document(s) Glucose [Mass/volume] in Serum or Plasma 65 mg/dL 65-99 Glucose [place] ([facility]) Urea nitrogen [Mass/volume] in Serum or Plasma 9 mg/dL 7-25 Urea Nitrogen (BUN) [facility]) Glomerular filtration rate/1.73 sq M.pre dicted among non-blacks [Volume Rate/Area] in Serum, Plasma or Blood by Creatinine-based formula (CKD-EPI) 112 mL/min/1.73m2 > or = 60 eGFR Non-afr. [place] JAYASHREE ([facility]) Creatinine [Mass/volume] in Serum or Plasma 0.76 mg/dL 0.50-1.10 Creatinine J[facility]REE ([facility]) Glomerular filtration rate/1.73 sq M.pre dicted among blacks [Volume Rate/Area] in Serum, Plasma or Blood by Creatinine-based formula (CKD-EPI) 130 mL/min/1.73m2 > or = 60 eGFR [facility]AY[facility]REE (No [facility]) Urea nitrogen/Creatinine [Mass Ratio] in Serum or Plasma not applic able 6-22 BUN/creatinine Ratio [facility] ([facility]) Sodium [Moles/volume] in Serum or Plasma 141 mmol/L 135-146 Sodium [place] ([facility]) Potassium [Moles/volume] in Serum or Plasma 4.4 mmol/L 3.5-5.3 Potassium J[facility] ([facility]) Chloride [Moles/volume] in Serum or Plasma 107 mmol/L 98-110 Chloride [place] ([facility]) Calcium [Mass/volume] in Serum or Plasma 9.9 mg/dL 8.6-10.2 Calcium [facility]) Carbon dioxide, total [Moles/volume] in Serum or Plasma 26 mmol/L 20-32 Carbon Dioxide [place] ([facility]) Protein [Mass/volume] in Serum or Plasma 7.2 g/dL 6.1-8.1 Protein, [facility] Albumin [Mass/volume] in Serum or Plasma 4.5 g/dL 3.6-5.1 Albumin [place] ([facility]) Globulin [Mass/volume] in Serum by calculation 2.7 g/dL_(calc) 1.9- 3.7 Globulin J[facility]REE ([facility]) Albumin/Globulin [Mass Ratio] in Serum or Plasma 1.7 (calc) 1.0-2 .5 Albumin/globulin Ratio [facility]) Alkaline phosphatase [Enzymatic activity/volume] in Serum or Plasma 87 U/L 31-125 Alkaline Phosphatase JAYASHREE ([facility]) Bilirubin.total [Mass/volume] in Serum or Plasma 0.4 mg/dL 0.2-1 .2 Bilirubin, Total [facility]REE ([facility]) Aspartate aminotransferase [Enzymatic activity/volume] in Serum or Plasma 20 U/L 10-30 Ast [place] ([facility]) Alanine aminotransferase [Enzymatic activity/volume] in Seru m or Plasma 13 U/L 6-29 Alt JAYASHREE ([facility]) ID Date Data Source [id number] 07/27/2021 12:00:00 AM EDT [facility]) Name Value Range Interpretation Code Description Data Jordana rce(s) Supporting Document(s) Chlamydia trachomatis rRNA [Presence] in Unspecified specimen by Probe and target amplification method not detected not detected Chla mydia Trachomatis RNA, Tma, Urogenital JAYASHREE ([facility]) Neisseria gonorrhoeae rRNA [Presence] in Unspecified specimen by Probe and target amplification method not detected not detected Neis seria Gonorrhoeae RNA, Tma, Urogenital [place] ([facility]) Trichomonas vaginalis rRNA [Presence] in Unspecified specimen by Probe and target amplification method not detected not detected sure swab(R) Trichomonas Vaginalis RNA, Ql, Tma [place] ([facility]) Mycoplasma genitalium DNA [Presence] in Unspecified specimen by Probe and target amplification method not detected not detected sureswab(R ), Mycoplasma Genitalium,realtime PCR [place] ([facility]) Service comment 05 see note Assay Details [facility] ([facility]) ID Date Data Source [id number] 07/27/2021 12:00:00 AM EDT [facility]) Name Value Range Interpretation Code Description Data Jordana rce(s) Supporting Document(s) Hepatitis C virus Ab [Presence] in Serum or Plasma by Immuno assay nonreactive nonreactive Hepatitis C Antibody JAYASHREE ([facility]) Hepatitis C virus Ab Signal/Cutoff in Serum or Plasma by Imm unoassay 0.01 ratio <1.00 Index JAYASHREE ([facility]) HIV 1+2 Ab+HIV1 p24 Ag [Presence] in Serum or Plasma b y Immunoassay non-reactive non-reactive HIV Ag/Ab, 4TH Gen [facility]) ID Date Data Source [id number] 07/27/2021 12:00:00 AM EDT [facility] ([facility]) Name Value Range Interpretation Code Description Data Jordana rce(s) Supporting Document(s) Cholesterol in HDL [Mass/volume] in Serum or Plasma 72 mg/dL > or = 50 HDL Cholesterol J[facility] ([facility]) Cholesterol [Mass/volume] in Serum or Plasma 152 mg/dL <200 [facility], [facility] Cholesterol in LDL [Mass/volume] in Serum or Plasma by calculation 52 mg/dL_(calc) LDL-cholesterol [facility] ([facility]) Triglyceride [Mass/volume] in Serum or Plasma 214 mg/dL <150 Above high normal Triglycerides JAYASHREE ([facility]) Cholesterol.total/Cholesterol in HDL [Mass Ratio] in Serum o r Plasma 2.1 (calc) <5.0 Chol/hdlc Ratio [place] ([facility]) Cholesterol non HDL [Mass/volume] in Serum or Plasma 80 mg/dL_(calc ) <130 Non HDL Cholesterol [place] ([facility]) ID Date Data Source [id number] 07/02/2021 12:00:00 AM EDT [facility]) Name Value Range Interpretation Code Description Data Jordana rce(s) Supporting Document(s) Nuclear Ab [Presence] in Serum negative negative anach oice(R) Screen [facility]) ID Date Data Source [id number] 07/02/2021 12:00:00 AM EDT [facility]) Name Value Range Interpretation Code Description Data Jordana rce(s) Supporting Document(s) Borrelia burgdorferi Ab [Units/volume] in Serum by Immunoassay <0.9 0 Lyme Ab Screen JAYASHREE ([facility]) ID Date Data Source [id number] 07/02/2021 12:00:00 AM EDT [place] ([facility]) Name Value Range Interpretation Code Description Data Jordana rce(s) Supporting Document(s) Erythrocytes [#/volume] in Blood by Automated count 4.57 million/uL 3.80-5.10 Red Blood Cell Count JAY[facility]REE ([facility]) Leukocytes [#/volume] in Blood by Automated count 10.8 thousand/uL 3.8-10.8 White Blood Cell Count [facility] ([facility]) Erythrocyte mean corpuscular hemoglobin [Entitic mass] by Automated count 30.2 pg 27.0-33.0 Mch [facility] ([facility]) Erythrocyte mean corpuscular volume [Entitic volume] by Auto mated count 89.3 fL 80.0-100.0 Mcv J[facility]ASHREE ([facility]) Hemoglobin [Mass/volume] in Blood 13.8 g/dL 11.7-15.5 He moglobin J[facility]ASHREE ([facility]) Hematocrit [Volume Fraction] of Blood by Automated count 40.8 % 35.0-45.0 Hematocrit [facility] ([facility]) Erythrocyte distribution width [Ratio] by Automated count 12.7 % 11.0-15.0 Rdw [facility]REE ([facility]) Platelets [#/volume] in Blood by Automated count 286 thousand/uL 14 0-400 Platelet Count [facility] ([facility]) Erythrocyte mean corpuscular hemoglobin concentration [Mass/volume] by Automated count 33.8 g/dL 32.0-36.0 Mchc J[facility]REE ([facility]) Platelet mean volume [Entitic volume] in Blood by Pattie 12. 7 fL 7.5-12.5 Above high normal Mpv JAYASHREE ([facility]) ID Date Data Source [id number] 07/02/2021 12:00:00 AM EDT [facility] ([facility]) Name Value Range Interpretation Code Description Data Jordana rce(s) Supporting Document(s) Nuclear Ab [Presence] in Serum negative negative anach oice(R) Screen [place] ([facility]) ID Date Data Source [id number] 07/02/2021 12:00:00 AM EDT [place] ([facility]) Name Value Range Interpretation Code Description Data Jordana rce(s) Supporting Document(s) Borrelia burgdorferi Ab [Units/volume] in Serum by Immunoassay <0.9 0 Lyme Ab Screen [place] ([facility]) ID Date Data Source [id number] 07/02/2021 12:00:00 AM EDT [place] ([facility]) Name Value Range Interpretation Code Description Data Jordana rce(s) Supporting Document(s) Leukocytes [#/volume] in Blood by Automated count 10.8 thousand/uL 3.8-10.8 White Blood Cell Count [place] ([facility]) Erythrocytes [#/volume] in Blood by Automated count 4.57 million/uL 3.80-5.10 Red Blood Cell Count [place] ([facility]) Hemoglobin [Mass/volume] in Blood 13.8 g/dL 11.7-15.5 He moglobin J[facility]ASHREE ([facility]) Hematocrit [Volume Fraction] of Blood by Automated count 40.8 % 35.0-45.0 Hematocrit [place] ([facility]) Erythrocyte mean corpuscular volume [Entitic volume] by Auto mated count 89.3 fL 80.0-100.0 Mcv J[facility]REE ([facility]) Erythrocyte mean corpuscular hemoglobin [Entitic mass] by Automated count 30.2 pg 27.0-33.0 Mch J[facility]ASHREE ([facility]) Erythrocyte mean corpuscular hemoglobin concentration [Mass/volume] by Automated count 33.8 g/dL 32.0-36.0 Mchc [facility] ([facility]) Erythrocyte distribution width [Ratio] by Automated count 12.7 % 11.0-15.0 Rdw J[facility] ([facility]) Platelets [#/volume] in Blood by Automated count 286 thousand/uL 14 0-400 Platelet Count [facility] ([facility]) Platelet mean volume [Entitic volume] in Blood by Pattie 12. 7 fL 7.5-12.5 Above high normal Mpv [facility]REE ([facility]) Procedure Social History No Information Vital Signs ID Date Data Source UNK Name Value Range Interpretation Code Description Data Source(s) Diastolic blood pressure 75 mm[Hg] 75 mm[Hg] [facility] ([facility]) Body height 69 [in_i] 69 [in_i] [facility] ([facility]) Body mass index (BMI) [Ratio] 34 kg/m2 34 kg/ m2 [facility] ([facility]) Systolic blood pressure 112 mm[Hg] 112 mm[Hg] [facility] ([facility]) Body weight 3680 [oz_av] 3680 [oz_av] [facility] ([facility]) Diastolic blood pressure 75 mm[Hg] 75 mm[Hg] [facility]REE ([facility]) Body height 69 [in_i] 69 [in_i] [facility] ([facility]) Body mass index (BMI) [Ratio] 34 kg/m2 34 kg/ m2 [facility] ([facility]) Systolic blood pressure 112 mm[Hg] 112 mm[Hg] [facility] ([facility]) Body weight 3680 [oz_av] 3680 [oz_av] [facility] ([facility]) Diastolic blood pressure 76 mm[Hg] 76 mm[Hg] J[facility]REE ([facility]) Systolic blood pressure 123 mm[Hg] 123 mm[Hg] [facility] ([facility]) Body weight 3568 [oz_av] 3568 [oz_av] [facility]REE ([facility]) Diastolic blood pressure 76 mm[Hg] 76 mm[Hg] J[facility]REE ([facility]) Systolic blood pressure 123 mm[Hg] 123 mm[Hg] [facility] ([facility]) Body weight 3568 [oz_av] 3568 [oz_av] [facility]REE ([facility]) Diastolic blood pressure 76 mm[Hg] 76 mm[Hg] [facility] ([facility]) Systolic blood pressure 123 mm[Hg] 123 mm[Hg] [facility] Body weight 3568 [oz_av] 3568 [oz_av] JAYASHREE ([facility]) Diastolic blood pressure 76 mm[Hg] 76 mm[Hg] J[facility]REE ([facility]) Systolic blood pressure 123 mm[Hg] 123 mm[Hg] A [facility] ([facility]) Body weight 3568 [oz_av] 3568 [oz_av] [facility]REE ([facility]) Patient Treatment Plan of Care Planned Activity Planned Date Details Description Data Source (s) meloxicam 15 MG Oral Tablet J[facility]ASHREE ([facility]) meloxicam 15 MG Oral Tablet [facility] ([facility])
[2021-09-15] MEDS ORDERED: NS 1,000 ML IV ONE (05:25)
[2021-09-15] MEDS ORDERED: ONDANSETRON 4MG/2ML VIAL IV ONE (05:30)
--- OUTSIDE RECORDS SUMMARY | 2021-09-15 05:57 | CCD ---
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 If you continue you may have access to information: Regarding HIV / AIDS; Provided by facilities licensed or operated by the [facility] Office of Mental Health; or Provided by the [facility] Office for People With Developmental Disabilities. If such information is present, then the following [facility] mandated warning applies: This information has been [...] law may result in a fine or long-term sentence or both. A general authorization for the release of medical or other information is NOT sufficient authorization for further disc losure. Encounters Encounter Providers Location Date Indications Data Source(s ) Reynold Esparza MD: [address] [place] [phone], Ph. Attender: Reynold Esparza MD [facility] Medical 08/23/2021 12:00:00 AM EDT [facility] ([facility]) Hali Adams MD: [address], [place] [address], Ph. Attender: Hali Adams [facility] Medical 07/21/2021 12:00:00 AM EDT [facility] ([facility]) Hali Adams MD: [address], [place] [address], Ph. Attender: Hali Adams [facility] Medical 07/21/2021 12:00:00 AM EDT [facility] ([facility]) Reynold Esparza MD: [address] [place] [address], Ph. Attender: Reynold Esparza MD [facility] Medical 07/01/2021 12:00:00 AM EDT [facility] ([facility]) Reynold Esparza MD: [address] [place] [address], Ph. Attender: Reynold Esparza MD [facility] Medical 07/01/2021 12:00:00 AM EDT [facility] ([facility]) Reynold Esparza MD: [address] [place] [address], Ph. Attender: Reynold Esparza MD [facility] Medical 07/01/2021 12:00:00 AM EDT [facility] ([facility]) Hali Adams MD: [address], [place] [address], Ph. Attender: Hali Adams [facility] Medical 06/29/2021 12:00:00 AM EDT [facility] ([facility]) Hali Adams MD: [address] [place] [address], Ph. Attender: [place] [facility] [place] 12:00:00 AM EDT [place] ([facility]) Hali Adams MD: [address] [place] [address], Ph. Attender: [place]ali [place] [facility] [place]/29/2021 12:00:00 AM EDT [place] ([facility]) Hali Adams MD: [address] [place] [address], Ph. Attender: [place]ali [place] [facility] [place]/29/2021 12:00:00 AM EDT [place] ([facility]) Medications Medication Brand Name Start Date Product Form Dose Route Admi nistrative Instructions Pharmacy Instructions Status Indications Reaction Description Data Source(s) meloxicam 15 MG Oral Tablet meloxicam 15 mg tablet meloxicam 15 mg ta blet completed meloxicam 15 MG Oral Tablet [facility] ([facility]) meloxicam 15 MG Oral Tablet meloxicam 15 mg tablet meloxicam 15 mg ta blet completed meloxicam 15 MG Oral Tablet [place] ([facility]) Insurance Providers Payer name Policy type / Coverage type Policy ID Covered libertarian ID Covered libertarian's relationship to mcconnell Policy [place] Plan Information [employer] [facility] emp [id number] Employee [id number] [employer] [facility] emp [id number] Employee [id number] [employer] [id number] SP [id number] 1 O UNAVAILABLE UNAVAILA BLE [employer] EP[employer] O [id number] S [id number] MEDICARE COMPLETE [id number] SP [id number] EDSON [id number] SP [id number] SELF PAY ONLY [id number] SP [id number] EDSON [id number] SP [id number] Problems, Conditions, and Diagnoses Code Display Name Description Problem Type Effective Dates Data Source(s) 06781817 Vitamin D deficiency Vitamin D Deficiency Problem 07/27/2021 12:00:00 AM EDT [facility] ([facility]) [id number] 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 Problem 07/21/2021 12:00:00 AM EDT [facility] ([facility]) [id number] Intervertebral disc prolapse Intervertebral Disc Prola pse Problem 07/21/2021 12:00:00 AM EDT [facility] ([facility]) [id number] History of gastrojejunal ulcer History of Hsereen rojejunal Ulcer Problem 07/21/2021 12:00:00 AM EDT [place] ([facility]) [id number] Intervertebral disc prolapse Intervertebral Disc Prola pse Problem 07/21/2021 12:00:00 AM EDT [facility] ([facility]) [id number] Paresthesia of hand Paresthesia of Hand Problem 0 07/20/2021 12:00:00 AM EDT [facility] ([facility]) [id number] Paresthesia of hand Paresthesia of Hand Problem 0 07/20/2021 12:00:00 AM EDT [place] ([facility]) Surgeries/Procedures No Information Results ID Date Data Source [id number] 08/23/2021 02:20:00 PM EDT [place] ([facility]) Name Value Range Interpretation Code Description Data Jordana rce(s) Supporting Document(s) sars-cov-2 PCR negative Sars-cov-2 PCR [place] ([facility]) sars-cov-2 negative negative Sars-cov-2 [place] ([facility]) ID Date Data Source [id number] 08/23/2021 02:05:00 PM EDT [facility] Name Value Range Interpretation Code Description Data Jordana rce(s) Supporting Document(s) SARS coronavirus 2 RdRp gene [Presence] in Respiratory specimen by HERMELINDO with probe detection Not detected [facility] This lab was ordered by [facility] and reported by [facility]. ID Date Data Source [id number] 07/27/2021 12:00:00 AM EDT [facility]) Name Value Range Interpretation Code Description Data Jordana rce(s) Supporting Document(s) Reagin Ab [Presence] in Serum by RPR non-reactive non-reactive RPR (DX) W/refl Titer and Confirmatory Testing [facility]) ID Date Data Source [id number] 07/27/2021 12:00:00 AM EDT [facility]) Name Value Range Interpretation Code Description Data Jordana rce(s) Supporting Document(s) Hemoglobin A1c/Hemoglobin.total in Blood 5.0 %_of_total_HGB <5.7 Hemoglobin a1C [facility]) ID Date Data Source [id number] 07/27/2021 12:00:00 AM EDT [facility]) Name Value Range Interpretation Code Description Data Jordana rce(s) Supporting Document(s) Calcidiol [Mass/volume] in Serum or Plasma 12 NG/mL 30-100 Below low normal Vitamin D,25-Oh,total,ia [facility]) ID Date Data Source [id number] 07/27/2021 12:00:00 AM EDT [facility]) Name Value Range Interpretation Code Description Data Jordana rce(s) Supporting Document(s) Thyrotropin [Units/volume] in Serum or Plasma 1.10 mIU/L Tsh [facility]) ID Date Data Source [id number] 07/27/2021 12:00:00 AM EDT [facility]) Name Value Range Interpretation Code Description Data Jordana rce(s) Supporting Document(s) Glucose [Mass/volume] in Serum or Plasma 65 mg/dL 65-99 Glucose [place] ([facility]) Urea nitrogen [Mass/volume] in Serum or Plasma 9 mg/dL 7-25 Urea Nitrogen (BUN) [facility]) Glomerular filtration rate/1.73 sq M.pre dicted among non-blacks [Volume Rate/Area] in Serum, Plasma or Blood by Creatinine-based formula (CKD-EPI) 112 mL/min/1.73m2 > or = 60 eGFR Non-afr. [place] [facility] ([facility]) Creatinine [Mass/volume] in Serum or Plasma 0.76 mg/dL 0.50-1.10 Creatinine [facility] ([facility]) Glomerular filtration rate/1.73 sq M.pre dicted among blacks [Volume Rate/Area] in Serum, Plasma or Blood by Creatinine-based formula (CKD-EPI) 130 mL/min/1.73m2 > or = 60 eGFR [facility] ([facility]) Urea nitrogen/Creatinine [Mass Ratio] in Serum or Plasma not applic able 6-22 BUN/creatinine Ratio [facility] ([facility]) Sodium [Moles/volume] in Serum or Plasma 141 mmol/L 135-146 Sodium [place] ([facility]) Potassium [Moles/volume] in Serum or Plasma 4.4 mmol/L 3.5-5.3 Potassium [facility] ([facility]) Chloride [Moles/volume] in Serum or Plasma 107 mmol/L 98-110 Chloride [place] ([facility]) Calcium [Mass/volume] in Serum or Plasma 9.9 mg/dL 8.6-10.2 Calcium [facility]) Carbon dioxide, total [Moles/volume] in Serum or Plasma 26 mmol/L 20-32 Carbon Dioxide [place] ([facility]) Protein [Mass/volume] in Serum or Plasma 7.2 g/dL 6.1-8.1 Protein, [facility] Albumin [Mass/volume] in Serum or Plasma 4.5 g/dL 3.6-5.1 Albumin [place] ([facility]) Globulin [Mass/volume] in Serum by calculation 2.7 g/dL_(calc) 1.9- 3.7 Globulin [facility] ([facility]) Albumin/Globulin [Mass Ratio] in Serum or Plasma 1.7 (calc) 1.0-2 .5 Albumin/globulin Ratio [facility]) Alkaline phosphatase [Enzymatic activity/volume] in Serum or Plasma 87 U/L 31-125 Alkaline Phosphatase [facility] ([facility]) Bilirubin.total [Mass/volume] in Serum or Plasma 0.4 mg/dL 0.2-1 .2 Bilirubin, Total [facility] ([facility]) Aspartate aminotransferase [Enzymatic activity/volume] in Serum or Plasma 20 U/L 10-30 Ast [place] ([facility]) Alanine aminotransferase [Enzymatic activity/volume] in Seru m or Plasma 13 U/L 6-29 Alt [facility]REE ([facility]) ID Date Data Source [id number] 07/27/2021 12:00:00 AM EDT [facility]) Name Value Range Interpretation Code Description Data Jordana rce(s) Supporting Document(s) Chlamydia trachomatis rRNA [Presence] in Unspecified specimen by Probe and target amplification method not detected not detected Chla mydia Trachomatis RNA, Tma, Urogenital [facility] ([facility]) Neisseria gonorrhoeae rRNA [Presence] in Unspecified specimen by Probe and target amplification method not detected not detected Neis seria Gonorrhoeae RNA, Tma, Urogenital [place] ([facility]) Trichomonas vaginalis rRNA [Presence] in Unspecified specimen by Probe and target amplification method not detected not detected sure swab(R) Trichomonas Vaginalis RNA, Ql, Tma [place] ([facility]) Mycoplasma genitalium DNA [Presence] in Unspecified specimen by Probe and target amplification method not detected not detected sureswab(R ), Mycoplasma Genitalium,realtime PCR [place] ([facility]) Service comment 05 see note Assay Details [facility]TH [facility] ([facility]) ID Date Data Source [id number] 07/27/2021 12:00:00 AM EDT [facility]) Name Value Range Interpretation Code Description Data Jordana rce(s) Supporting Document(s) Hepatitis C virus Ab [Presence] in Serum or Plasma by Immuno assay nonreactive nonreactive Hepatitis C Antibody [facility] ([facility]) Hepatitis C virus Ab Signal/Cutoff in Serum or Plasma by Imm unoassay 0.01 ratio <1.00 Index [facility] ([facility]) HIV 1+2 Ab+HIV1 p24 Ag [Presence] in Serum or Plasma b y Immunoassay non-reactive non-reactive HIV Ag/Ab, 4TH Gen [facility]) ID Date Data Source [id number] 07/27/2021 12:00:00 AM EDT [facility] ([facility]) Name Value Range Interpretation Code Description Data Jordana rce(s) Supporting Document(s) Cholesterol in HDL [Mass/volume] in Serum or Plasma 72 mg/dL > or = 50 HDL Cholesterol [facility] ([facility]) Cholesterol [Mass/volume] in Serum or Plasma 152 mg/dL <200 Cholesterol, [facility] Cholesterol in LDL [Mass/volume] in Serum or Plasma by calculation 52 mg/dL_(calc) LDL-cholesterol [facility] ([facility]) Triglyceride [Mass/volume] in Serum or Plasma 214 mg/dL <150 Above high normal Triglycerides [facility] ([facility]) Cholesterol.total/Cholesterol in HDL [Mass Ratio] in Serum o r Plasma 2.1 (calc) <5.0 Chol/hdlc Ratio [place] ([facility]) Cholesterol non HDL [Mass/volume] in Serum or Plasma 80 mg/dL_(calc ) <130 Non HDL Cholesterol [place] ([facility]) ID Date Data Source [id number] 07/02/2021 12:00:00 AM EDT [facility]) Name Value Range Interpretation Code Description Data Jordana rce(s) Supporting Document(s) Nuclear Ab [Presence] in Serum negative negative anach oice(R) Screen [facility]) ID Date Data Source [id number] 07/02/2021 12:00:00 AM EDT [facility]) Name Value Range Interpretation Code Description Data Jordana rce(s) Supporting Document(s) Borrelia burgdorferi Ab [Units/volume] in Serum by Immunoassay <0.9 0 Lyme Ab Screen [facility] ([facility]) ID Date Data Source [id number] 07/02/2021 12:00:00 AM EDT [place] ([facility]) Name Value Range Interpretation Code Description Data Jordana rce(s) Supporting Document(s) Erythrocytes [#/volume] in Blood by Automated count 4.57 million/uL 3.80-5.10 Red Blood Cell Count [facility] ([facility]) Leukocytes [#/volume] in Blood by Automated count 10.8 thousand/uL 3.8-10.8 White Blood Cell Count [facility] ([facility]) Erythrocyte mean corpuscular hemoglobin [Entitic mass] by Automated count 30.2 pg 27.0-33.0 Mch [facility] ([facility]) Erythrocyte mean corpuscular volume [Entitic volume] by Auto mated count 89.3 fL 80.0-100.0 Mcv [facility] ([facility]) Hemoglobin [Mass/volume] in Blood 13.8 g/dL 11.7-15.5 He moglobin [facility] ([facility]) Hematocrit [Volume Fraction] of Blood by Automated count 40.8 % 35.0-45.0 Hematocrit [facility] ([facility]) Erythrocyte distribution width [Ratio] by Automated count 12.7 % 11.0-15.0 Rdw [facility] ([facility]) Platelets [#/volume] in Blood by Automated count 286 thousand/uL 14 0-400 Platelet Count [facility] ([facility]) Erythrocyte mean corpuscular hemoglobin concentration [Mass/volume] by Automated count 33.8 g/dL 32.0-36.0 Mchc [facility] ([facility]) Platelet mean volume [Entitic volume] in Blood by Pattie 12. 7 fL 7.5-12.5 Above high normal Mpv [facility] ([facility]) ID Date Data Source [id number] 07/02/2021 12:00:00 AM EDT [facility] ([facility]) Name Value Range Interpretation Code Description Data Jordana rce(s) Supporting Document(s) Nuclear Ab [Presence] in Serum negative negative anach oice(R) Screen [place] ([facility]) ID Date Data Source [id number] 07/02/2021 12:00:00 AM EDT [place] ([facility]) Name Value Range Interpretation Code Description Data Jordana rce(s) Supporting Document(s) Borrelia burgdorferi Ab [Units/volume] in Serum by Immunoassay <0.9 0 Lyme Ab Screen [place] ([facility]) ID Date Data Source [id number] 07/02/2021 12:00:00 AM EDT [place] ([facility]) Name Value Range Interpretation Code Description Data Jordana rce(s) Supporting Document(s) Leukocytes [#/volume] in Blood by Automated count 10.8 thousand/uL 3.8-10.8 White Blood Cell Count [place] ([facility]) Erythrocytes [#/volume] in Blood by Automated count 4.57 million/uL 3.80-5.10 Red Blood Cell Count [place] ([facility]) Hemoglobin [Mass/volume] in Blood 13.8 g/dL 11.7-15.5 He moglobin [facility] ([facility]) Hematocrit [Volume Fraction] of Blood by Automated count 40.8 % 35.0-45.0 Hematocrit [place] ([facility]) Erythrocyte mean corpuscular volume [Entitic volume] by Auto mated count 89.3 fL 80.0-100.0 Mcv [facility] ([facility]) Erythrocyte mean corpuscular hemoglobin [Entitic mass] by Automated count 30.2 pg 27.0-33.0 Mch [facility] ([facility]) Erythrocyte mean corpuscular hemoglobin concentration [Mass/volume] by Automated count 33.8 g/dL 32.0-36.0 Mchc [facility] ([facility]) Erythrocyte distribution width [Ratio] by Automated count 12.7 % 11.0-15.0 Rdw [facility] ([facility]) Platelets [#/volume] in Blood by Automated count 286 thousand/uL 14 0-400 Platelet Count [facility] ([facility]) Platelet mean volume [Entitic volume] in Blood by Pattie 12. 7 fL 7.5-12.5 Above high normal Mpv [facility] ([facility]) Procedure Social History No Information Vital Signs ID Date Data Source UNK Name Value Range Interpretation Code Description Data Source(s) Diastolic blood pressure 75 mm[Hg] 75 mm[Hg] [facility] ([facility]) Body height 69 [in_i] 69 [in_i] [facility] ([facility]) Body mass index (BMI) [Ratio] 34 kg/m2 34 kg/ m2 [facility] ([facility]) Systolic blood pressure 112 mm[Hg] 112 mm[Hg] A [facility] ([facility]) Body weight 3680 [oz_av] 3680 [oz_av] [facility] ([facility]) Diastolic blood pressure 75 mm[Hg] 75 mm[Hg] [facility] ([facility]) Body height 69 [in_i] 69 [in_i] [facility] ([facility]) Body mass index (BMI) [Ratio] 34 kg/m2 34 kg/ m2 [facility] ([facility]) Systolic blood pressure 112 mm[Hg] 112 mm[Hg] A [facility] ([facility]) Body weight 3680 [oz_av] 3680 [oz_av] [facility] ([facility]) Diastolic blood pressure 76 mm[Hg] 76 mm[Hg] [facility] ([facility]) Diastolic blood pressure 76 mm[Hg] 76 mm[Hg] [facility] ([facility]) Systolic blood pressure 123 mm[Hg] 123 mm[Hg] A [facility] ([facility]) Body weight 3568 [oz_av] 3568 [oz_av] [facility] ([facility]) Systolic blood pressure 123 mm[Hg] 123 mm[Hg] A [facility] ([facility]) Body weight 3568 [oz_av] 3568 [oz_av] [facility] ([facility]) Diastolic blood pressure 76 mm[Hg] 76 mm[Hg] [facility] ([facility]) Systolic blood pressure 123 mm[Hg] 123 mm[Hg] [facility] Body weight 3568 [oz_av] 3568 [oz_av] [facility] ([facility]) Diastolic blood pressure 76 mm[Hg] 76 mm[Hg] [facility] ([facility]) Systolic blood pressure 123 mm[Hg] 123 mm[Hg] A [facility] ([facility]) Body weight 3568 [oz_av] 3568 [oz_av] [facility] ([facility]) Patient Treatment Plan of Care Planned Activity Planned Date Details Description Data Source (s) meloxicam 15 MG Oral Tablet [facility] ([facility]) meloxicam 15 MG Oral Tablet [facility] ([facility])
[2021-09-15 06:37] LABS: BASO % 0.4 % (0.0-1.0); EOS # 0.1 10^3/uL (0.0-0.5); HEMATOCRIT 42.7 % (36.0-47.0); HEMOGLOBIN 14.2 g/dl (12.0-15.5); LYMPH # 1.8 10^3/uL (1.5-5.0); MEAN CORPUSCULAR HEMOGLOBIN 29.7 pg (27.0-33.0); MEAN CORPUSCULAR HGB CONC 33.3 g/dl (32.0-36.5); MEAN CORPUSCULAR VOLUME 89.3 fl (80.0-96.0); MONO # 0.7 10^3/uL (0.0-0.8); NEUTROPHILS # 5.8 10^3/uL (1.5-8.5); NEUTROPHILS % 69.1 % (36.0-66.0); PLATELET COUNT, AUTOMATED 230 10^3/uL (150-450); RED BLOOD COUNT 4.78 10^6/uL (4.00-5.40); WHITE BLOOD COUNT 8.4 10^3/uL (4.0-10.0)
[2021-09-15 06:51] LABS: HCG, SERUM QUALITATIVE NEGATIVE (NEGATIVE)
[2021-09-15 07:04] LABS: BLOOD UREA NITROGEN 9 MG/DL (7-18); CALCIUM LEVEL 8.8 MG/DL (8.5-10.1); CARBON DIOXIDE LEVEL 24 MEQ/L (21-32); CHLORIDE LEVEL 106 MEQ/L (98-107); CREATININE FOR GFR 0.75 MG/DL (0.55-1.30); GLOMERULAR FILTRATION RATE > 60.0 (>60); GLUCOSE, FASTING 79 MG/DL (70-100); POTASSIUM SERUM 4.1 MEQ/L (3.5-5.1); SODIUM LEVEL 137 MEQ/L (136-145)
[2021-09-15 07:16] LABS: RSV AMPLIFICATION NEGATIVE (NEGATIVE)
[2021-09-15] MEDS ORDERED: ZOFR4TAB16 PO (08:57)
[2021-09-15 09:13] VITALS: BP 128/84
== END 2021-09-15 09:24 | disposition home or self-care (01) ==
LOC: M ED 04:37
DX: R11.2 Nausea with vomiting, unspecified (principal); R19.7 Diarrhea, unspecified; F12.10 Cannabis abuse, uncomplicated; Z91.010 Allergy to peanuts
CPT/HCPCS: 80048; 84703; 85025; 87631; 96361; 96374; 99284; J2405

== ENCOUNTER → 2021-09-16 | Outpatient (REF) | payer OTHER ==
[~2021-09-16] MED LIST changes: +ZOFR4TAB16 PO
== END ==
LOC: M LAB REF 11:15
PROVIDERS: ATTEND Emergency Medicine
DX: R19.7 Diarrhea, unspecified (principal)

== ENCOUNTER → 2021-11-26 | Outpatient (CLI) | payer MEDICAID, MEDICARE | LOC: M LAB 11:33 | PROVIDERS: ATTEND Psychiatry & Neurology Neurology | DX: M19.90 Unspecified osteoarthritis, unspecified site (principal) ==

== ENCOUNTER 2022-01-02 19:09 | Emergency (ER) | payer MEDICARE, OTHER ==
[~2022-01-02] VITALS: Ht 175.3 cm; Wt 102.9 kg
[2022-01-02 19:10] VITALS: BP 172/96
== END 2022-01-02 21:49 | disposition left against medical advice (07) ==
LOC: M ED 19:09
DX: Z53.21 Procedure and treatment not carried out due to patient leaving prior to being seen by health care provider (principal)

== ENCOUNTER 2022-07-01 04:07 | Inpatient (IN) | payer MEDICAID, OTHER, SELFPAY ==
[~2022-07-01] VITALS: Ht 175.3 cm; Wt 107.4 kg
[2022-07-01] MEDS ORDERED: MORPHINE 2 MG/ML 1ML VIAL IV ONE (05:10)
[2022-07-01] MEDS ORDERED: KETAMINE HCL 200 MG/20 ML VIAL IV ONE (05:35)
[2022-07-01] MEDS ORDERED: propofoL 200 MG/20 ML VIAL IV.PROC PRN (05:35)
[2022-07-01] MEDS ORDERED: NS 1,000 ML IV SCH (05:35)
[2022-07-01 07:06] LABS: BASO # 0.1 10^3/uL (0.0-0.2); BASO % 0.6 % (0.0-1.0); EOS # 0.4 10^3/uL (0.0-0.5); EOS % 3.4 % (0.0-3.0); HEMATOCRIT 36.9 % (36.0-47.0); LYMPH # 2.5 10^3/uL (1.5-5.0); LYMPH % 20.9 % (24.0-44.0); MEAN CORPUSCULAR HEMOGLOBIN 29.1 pg (27.0-33.0); MEAN CORPUSCULAR HGB CONC 32.5 g/dl (32.0-36.5); MEAN CORPUSCULAR VOLUME 89.3 fl (80.0-96.0); MONO # 0.6 10^3/uL (0.0-0.8); NEUTROPHILS # 8.4 10^3/uL (1.5-8.5); NEUTROPHILS % 69.7 % (36.0-66.0); PLATELET COUNT, AUTOMATED 267 10^3/uL (150-450); RED BLOOD COUNT 4.13 10^6/uL (4.00-5.40)
[2022-07-01 07:32] LABS: HCG, SERUM QUALITATIVE NEGATIVE (NEGATIVE)
[2022-07-01 07:36] LABS: BLOOD UREA NITROGEN 7 MG/DL (7-18); CALCIUM LEVEL 8.4 MG/DL (8.5-10.1); CARBON DIOXIDE LEVEL 22 MEQ/L (21-32); CHLORIDE LEVEL 111 MEQ/L (98-107); CREATININE FOR GFR 0.58 MG/DL (0.55-1.30); GLOMERULAR FILTRATION RATE > 60.0 (>60); GLUCOSE, FASTING 87 MG/DL (70-100); SODIUM LEVEL 140 MEQ/L (136-145)
[2022-07-01 07:37] LABS: RSV AMPLIFICATION NEGATIVE (NEGATIVE)
[2022-07-01] MEDS ORDERED: NAPR-885 PO (07:40)
[2022-07-01] MEDS ORDERED: HOME MED LIST COMPLETE! XX SCH (07:40)
[2022-07-01] MEDS ORDERED: PROAAER10 INH (07:40)
[2022-07-01] MEDS ORDERED: D5W/0.45% SODIUM CHLORIDE 1,000 ML IV SCH (07:50)
[2022-07-01] MEDS ORDERED: DEXTROSE 50% 50 ML SYRINGE IV PRN (08:10)
[2022-07-01] MEDS ORDERED: GLUCOSE 4GM CHEW TABLET PO PRN (08:10)
[2022-07-01] MEDS ORDERED: GLUCAGON INJ 1MG VIAL SC PRN (08:10)
[2022-07-01] MEDS: MORPHINE 4 MG/ML 1ML VIAL/SYRINGE IV PRN ×4 (08:24→15:34)
[2022-07-01 08:36] LABS: CHOLESTEROL LEVEL 122 MG/DL (<200); HDL CHOLESTEROL 67 MG/DL (>40); LDL CHOLESTEROL 35 MG/DL (<100); NON-HDL-C 55 MG/DL; TRIGLYCERIDES LEVEL 99 MG/DL (<150)
[2022-07-01] MEDS ORDERED: PROMETHAZINE 25MG/ML 1ML VIAL IV ONE (09:15)
[2022-07-01] MEDS ORDERED: PROMETHAZINE 25MG/ML 1ML VIAL IV PRN (09:15)
[2022-07-01] MEDS ORDERED: PROMETHAZINE 25MG/ML 1ML VIAL IM ONE (09:15)
[2022-07-01 10:25] LABS: HEMOGLOBIN A1c 5.1 %
[2022-07-01 13:00] VITALS: BP 152/89
[2022-07-01] MEDS ORDERED: BUPIVACAINE/EPIN 0.5% 30 ML VIAL As Ordered ONE (16:27)
[2022-07-01] MEDS ORDERED: LIDOCAINE 2% 100MG/5ML SDV (FOR ANES.) As Ordered ONE (17:04)
[2022-07-01] MEDS ORDERED: fentaNYL 100 MCG/2 ML INJECTION As Ordered ONE (17:05)
[2022-07-01] MEDS ORDERED: propofoL 500 MG/50 ML VIAL As Ordered ONE (17:05)
[2022-07-01] MEDS ORDERED: MIDAZOLAM INJ 2MG/2ML VIAL (J2250 PER 1MG) As Ordered ONE (17:05)
[2022-07-01] MEDS ORDERED: ceFAZolin 1GM VIAL (J0690 PER 500MG) As Ordered ONE (17:18)
[2022-07-01] MEDS ORDERED: HYDROmorphone HCL 2MG/ML 1ML VIAL As Ordered ONE (18:04)
[2022-07-01] MEDS ORDERED: ONDANSETRON 4MG 2ML VIAL As Ordered ONE (18:28)
[2022-07-01] MEDS ORDERED: dexameTHASONE 4 MG/ML 1ML VIAL (J1100 PER 1MG) As Ordered ONE (18:28)
[2022-07-01] MEDS ORDERED: KETOROLAC 60MG 2ML VIAL As Ordered ONE (18:28)
[2022-07-01] MEDS ORDERED: ACETAMINOPHEN 1000MG 100ML IV BTL (OFIRMEV) (J0131 PER 10MG) As Ordered ONE (18:51)
[2022-07-01] MEDS ORDERED: fentaNYL 100 MCG/2 ML INJECTION IV PRN (19:20)
[2022-07-01] MEDS ORDERED: LR 1,000 ML IV SCH ×2 (19:20→20:15)
[2022-07-01] MEDS ORDERED: oxyCODONE 5MG TAB PO PRN (19:20)
[2022-07-01] MEDS ORDERED: ONDANSETRON 4MG 2ML VIAL IV PRN ×2 (19:20→20:15)
[2022-07-01] MEDS ORDERED: MORPHINE 2 MG/ML 1ML VIAL IV PRN ×2 (19:45→20:15)
[2022-07-01] MEDS ORDERED: traMADol 50 MG TAB PO PRN (20:15)
[2022-07-01] MEDS ORDERED: MORPHINE 4 MG/ML 1ML VIAL/SYRINGE IV PRN (20:15)
[2022-07-01] MEDS ORDERED: PERCOCET 5MG/325MG TAB PO PRN (20:15)
[2022-07-01] MEDS ORDERED: ACETAMINOPHEN TAB 650MG DOSE (2X325MG) PO PRN (20:15)
[2022-07-01] MEDS ORDERED: diphenhydrAMINE 50MG/ML VIAL (J1200) IV PRN (20:20)
[2022-07-01 21:15] VITALS: BP 128/71
[2022-07-01] MEDS: ASPIRIN 81MG ENTERIC TABLET PO SCH (21:43)
[2022-07-01 21:45] VITALS: BP 135/74
[2022-07-01] MEDS: PERCOCET 5MG/325MG TAB PO PRN (21:54)
[2022-07-01 22:45] VITALS: BP 132/79
[2022-07-01 23:45] VITALS: BP 131/81
[2022-07-02] VITALS (7 sets, daily range): BP systolic 136–144; BP diastolic 68–87
[2022-07-02] MEDS ORDERED: ceFAZolin SOD 1 GM in D5W MINI-BAG PLUS 50 ML IV SCH (02:00)
[2022-07-02] MEDS ORDERED: ceFAZolin SOD 2 GM in IV 1 EA IV SCH (02:30)
[2022-07-02] MEDS ORDERED: PERCOCET 5MG/325MG TAB PO ONE ×2 (07:15→08:00)
[2022-07-02] MEDS: ASPIRIN 81MG ENTERIC TABLET PO SCH ×2 (07:38→20:31)
[2022-07-02] MEDS ORDERED: KETOROLAC 30 MG/ML 1ML VIAL IV ONE (08:00)
[2022-07-02] MEDS: PERCOCET 5MG/325MG TAB PO PRN ×2 (12:56→18:03)
[2022-07-03] MEDS: PERCOCET 5MG/325MG TAB PO PRN ×2 (00:08→06:00)
[2022-07-03 06:00] VITALS: BP 122/70
[2022-07-03] MEDS ORDERED: ASPI-551 PO (07:56)
[2022-07-03] MEDS ORDERED: PERCOCET PO (07:56)
[2022-07-03] MEDS ORDERED: SENO8.6T10 PO (07:58)
[2022-07-03] MEDS ORDERED: MIRA3350 PO (07:58)
[2022-07-03] MEDS ORDERED: PERCOCET 5MG/325MG TAB PO ONE (09:00)
[2022-07-03] MEDS ORDERED: KETOROLAC 30 MG/ML 1ML VIAL IV ONE (09:00)
[2022-07-03] MEDS: ASPIRIN 81MG ENTERIC TABLET PO SCH (09:54)
== END 2022-07-03 11:30 | disposition home or self-care (01) | DRG 313 ==
LOC: EDBD 04:07 → M ED 04:07 → M ED INP 07:50 → ENRESERV 12:05 → M MS5PR 12:43
PROVIDERS: ADMIT General Practice; ATTEND General Practice
PROC: 0QSJXZZ Reposition Right Fibula, External Approach (ICD-10-PCS; 2022-07-01)
PROC: 0QSJ04Z Reposition Right Fibula with Internal Fixation Device, Open Approach (ICD-10-PCS; principal; 2022-07-01 16:30)
DX: S82.841A Displaced bimalleolar fracture of right lower leg, initial encounter for closed fracture (principal); I10 Essential (primary) hypertension; W10.9XXA Fall (on) (from) unspecified stairs and steps, initial encounter; Y92.009 Unspecified place in unspecified non-institutional (private) residence as the place of occurrence of the external cause; Y93.89 Activity, other specified; Y99.8 Other external cause status; E66.9 Obesity, unspecified; F12.10 Cannabis abuse, uncomplicated; Z68.33 Body mass index [BMI] 33.0-33.9, adult; Z91.010 Allergy to peanuts; Z71.51 Drug abuse counseling and surveillance of drug abuser

== ENCOUNTER → 2022-07-14 | Outpatient (CLI) | payer MEDICAID ==
[~2022-07-14] MED LIST changes: +ASPI-551 PO; +MIRA3350 PO; +NAPR-885 PO; +PERCOCET PO; +PROAAER10 INH; +SENO8.6T10 PO
== END ==
LOC: M SOG 08:17
PROVIDERS: ATTEND Orthopaedic Surgery Adult Reconstructive Orthopaedic Surgery
DX: S82.891A Other fracture of right lower leg, initial encounter for closed fracture (principal); W18.30XA Fall on same level, unspecified, initial encounter; Y92.009 Unspecified place in unspecified non-institutional (private) residence as the place of occurrence of the external cause

== ENCOUNTER → 2022-08-11 | Outpatient (CLI) | payer MEDICAID | LOC: M SOG 09:07 | PROVIDERS: ATTEND Orthopaedic Surgery Adult Reconstructive Orthopaedic Surgery | DX: S82.841D Displaced bimalleolar fracture of right lower leg, subsequent encounter for closed fracture with routine healing (principal); W18.30XD Fall on same level, unspecified, subsequent encounter ==

== ENCOUNTER → 2022-08-19 | Outpatient (CLI) | payer OTHER | LOC: M SOG 08:47 | PROVIDERS: ATTEND Orthopaedic Surgery Hand Surgery | DX: M79.645 Pain in left finger(s) (principal) ==

== ENCOUNTER 2022-09-18 08:19 | Emergency (ER) | payer OTHER ==
[~2022-09-18] VITALS: Ht 175.3 cm; Wt 111.5 kg
[2022-09-18 09:30] LABS: BASO % 0.3 % (0.0-1.0); HEMATOCRIT 43.9 % (36.0-47.0); HEMOGLOBIN 14.1 g/dl (12.0-15.5); LYMPH # 0.4 10^3/uL (1.5-5.0); LYMPH % 3.2 % (24.0-44.0); MEAN CORPUSCULAR HEMOGLOBIN 28.9 pg (27.0-33.0); MEAN CORPUSCULAR HGB CONC 32.1 g/dl (32.0-36.5); MONO % 6.9 % (2.0-8.0); NEUTROPHILS # 12.2 10^3/uL (1.5-8.5); PLATELET COUNT, AUTOMATED 247 10^3/uL (150-450); RED BLOOD COUNT 4.88 10^6/uL (4.00-5.40); WHITE BLOOD COUNT 13.8 10^3/uL (4.0-10.0)
[2022-09-18 09:47] LABS: HCG, SERUM QUALITATIVE NEGATIVE (NEGATIVE)
[2022-09-18 10:01] LABS: ALBUMIN 4.3 G/DL (3.2-5.2); ALT/SGPT 11 U/L (7.0-40); BILIRUBIN,DIRECT 0.2 MG/DL (<0.4); BILIRUBIN,TOTAL 0.5 MG/DL (0.3-1.2); BLOOD UREA NITROGEN 8 MG/DL (9-23); CALCIUM LEVEL 10.1 MG/DL (8.5-10.1); CARBON DIOXIDE LEVEL 26 MMOL/L (20-31); CHLORIDE LEVEL 106 MMOL/L (98-107); CREATININE FOR GFR 0.59 MG/DL (0.55-1.30); GLOMERULAR FILTRATION RATE > 60.0 (>60); GLUCOSE, FASTING 107 MG/DL (60-100); POTASSIUM SERUM 4.5 MMOL/L (3.5-5.1); SODIUM LEVEL 138 MMOL/L (136-145); TOTAL PROTEIN 7.7 G/DL (5.7-8.2)
[2022-09-18] MEDS ORDERED: IPRATROPIUM 0.5MG/ALBUTEROL 2.5MG INH SOL UD 3ML (DUONEB) NEB ONE (12:15)
[2022-09-18] MEDS ORDERED: methylPREDNISolone 125MG 2ML VIAL IM ONE (13:45)
[2022-09-18] MEDS ORDERED: OSELTAMIVIR PHOSPHATE 75 MG CAP (TAMIFLU) PO ONE (13:55)
[2022-09-18] MEDS ORDERED: OSEL75CA PO (15:08)
[2022-09-18 15:12] VITALS: BP 163/84
[2022-09-18] MEDS ORDERED: IBUPROFEN 800 MG TAB PO ONE (15:15)
== END 2022-09-18 16:30 | disposition home or self-care (01) ==
LOC: M ED 08:19 → EDBD 08:19 → M ED 16:30
DX: J09.X2 Influenza due to identified novel influenza A virus with other respiratory manifestations (principal); R06.02 Shortness of breath; J02.9 Acute pharyngitis, unspecified; Z91.010 Allergy to peanuts; Z79.51 Long term (current) use of inhaled steroids; Z79.899 Other long term (current) drug therapy
CPT/HCPCS: 36415; 71046; 80048; 80076; 84703; 85025; 87486; 87581; 87633; 87798; 94640; 96372; 99284; J2930

== ENCOUNTER → 2022-12-20 | Outpatient (CLI) | payer OTHER, SELFPAY ==
[~2022-12-20] MED LIST changes: +OSEL75CA PO
== END ==
LOC: M RAD 10:30
PROVIDERS: ATTEND Pediatrics
DX: M54.42 Lumbago with sciatica, left side (principal)

== ENCOUNTER 2022-12-31 14:27 | Emergency (ER) | payer OTHER, SELFPAY ==
[~2022-12-31] VITALS: Ht 175.3 cm; Wt 108.2 kg
[2022-12-31] MEDS ORDERED: ACETAMINOPHEN 500 MG TAB PO ONE (15:25)
[2022-12-31 16:12] VITALS: BP 139/83
== END 2022-12-31 16:26 | disposition home or self-care (01) ==
LOC: M ED 14:27
DX: S43.401A Unspecified sprain of right shoulder joint, initial encounter (principal); W00.9XXA Unspecified fall due to ice and snow, initial encounter; Y92.410 Unspecified street and highway as the place of occurrence of the external cause; F41.9 Anxiety disorder, unspecified; F32.9 Major depressive disorder, single episode, unspecified; F12.10 Cannabis abuse, uncomplicated; Z91.010 Allergy to peanuts

== ENCOUNTER 2023-01-25 10:22 | Outpatient (RCR) | payer MEDICAID, OTHER, SELFPAY | END 2023-01-27 | LOC: M PT 10:22 | PROVIDERS: ATTEND Pediatrics | DX: M54.42 Lumbago with sciatica, left side (principal) ==

== ENCOUNTER 2023-03-06 08:26 | Emergency (ER) | payer MEDICAID, OTHER, SELFPAY ==
[~2023-03-06] VITALS: Ht 172.7 cm; Wt 104.5 kg
[2023-03-06] MEDS ORDERED: ONDANSETRON 4MG ORAL DISINTEGRATING TAB PO ONE (12:50)
[2023-03-06] MEDS ORDERED: LIDOCAINE 5% (LIDODERM) PATCH TD ONE (12:50)
[2023-03-06] MEDS ORDERED: diazePAM 5MG TABLET PO ONE ×2 (12:50→13:50)
[2023-03-06] MEDS ORDERED: KETOROLAC 60MG 2ML VIAL IM ONE (12:50)
[2023-03-06] MEDS ORDERED: ASPE4PAD TOP (13:50)
[2023-03-06] MEDS ORDERED: METH-1165 PO (13:50)
[2023-03-06] MEDS ORDERED: NAPR-837 PO (13:50)
[2023-03-06 14:06] VITALS: BP 128/78
[2023-03-07] MEDS ORDERED: MEDR4PAK PO (07:48)
== END 2023-03-06 14:09 | disposition home or self-care (01) ==
LOC: M ED 08:26
DX: M54.50 Low back pain, unspecified (principal); Z91.010 Allergy to peanuts
CPT/HCPCS: 96372; 99283; J1885

== ENCOUNTER 2023-03-07 07:10 | Emergency (ER) | payer OTHER, SELFPAY ==
[~2023-03-07] VITALS: Ht 172.7 cm; Wt 102.0 kg
[~2023-03-07 07:10] MED LIST changes: +ASPE4PAD TOP; +METH-1165 PO; +NAPR-837 PO
[2023-03-07] MEDS ORDERED: traMADol 50 MG TAB PO ONE (07:45)
[2023-03-07] MEDS ORDERED: ACETAMINOPHEN TAB 650MG DOSE (2X325MG) PO ONE (07:45)
[2023-03-07] MEDS ORDERED: MEDR4PAK PO (07:48)
[2023-03-07 08:05] VITALS: BP 142/82
[2023-03-08] MEDS ORDERED: HYDR-3713 PO (00:33)
== END 2023-03-07 08:06 | disposition home or self-care (01) ==
LOC: M ED 07:10
DX: S39.012A Strain of muscle, fascia and tendon of lower back, initial encounter (principal); X58.XXXA Exposure to other specified factors, initial encounter; Y92.89 Other specified places as the place of occurrence of the external cause; Y93.89 Activity, other specified; Y99.8 Other external cause status; M51.36 Other intervertebral disc degeneration, lumbar region; Z91.010 Allergy to peanuts; Z79.899 Other long term (current) drug therapy; Z79.51 Long term (current) use of inhaled steroids

== ENCOUNTER 2023-03-07 13:25 | Emergency (ER) | payer SELFPAY ==
[~2023-03-07] VITALS: Ht 172.7 cm; Wt 108.4 kg
[~2023-03-07 13:25] MED LIST changes: +MEDR4PAK PO
[2023-03-07] MEDS ORDERED: methocarbamoL 500 MG TAB PO ONE (16:20)
[2023-03-07] MEDS ORDERED: KETOROLAC 60MG 2ML VIAL IM ONE (16:20)
[2023-03-07] MEDS ORDERED: methylPREDNISolone 125MG 2ML VIAL IM ONE (16:20)
[2023-03-07] MEDS ORDERED: ACETAMINOPHEN 1000MG 100ML IV BAG IV ONE (18:25)
[2023-03-07] MEDS ORDERED: MORPHINE 4 MG/ML 1ML VIAL IV ONE (22:50)
[2023-03-08] MEDS ORDERED: HYDR-3713 PO (00:33)
[2023-03-08 01:01] VITALS: BP 134/73
== END 2023-03-08 00:59 | disposition home or self-care (01) ==
LOC: M ED 13:25
DX: M51.86 Other intervertebral disc disorders, lumbar region (principal); Z91.010 Allergy to peanuts; Z79.899 Other long term (current) drug therapy; Z79.51 Long term (current) use of inhaled steroids
CPT/HCPCS: 72148; 96372; 96374; 96375; 99284; J0131; J1885; J2930